=== PATIENT | male | born 1960 | race Caucasian/White ===

== ENCOUNTER 2017-05-26 09:22 | Inpatient (IN) | payer OTHER ==
--- NOTE | 2017-05-26 09:31 | PDOC ---
History of Present Illness - General Chief Complaint: Pain Stated Complaint: ABDOMINAL PAIN,HX OF DIVERTICULITIS Time Seen by Provider: 05/26/17 09:30 - History of Present Illness Initial Comments: 05/26/17 10:06 Chief complaint: Abdominal pain History of present illness: Patient states that he has had abdominal pain for the last week, off and on, and today it is unbearable. He states that the only thing that works for his pain is Dilaudid and is demanding a Dilaudid injection immediately. His pain is poorly described and he refuses to localize it. He states that he is "retching" but no vomiting. He states he is having bowel movements but denies bloody stool or melena. Review of systems: As noted above. In addition, he states that he has had multiple episodes of "diverticulitis" but no surgery. He states that the last episode was 4 or 5 years ago. At the same time, he says that "no one can find out what is causing my abdominal pain" his doctors are Dr. Juarez and Dr. Aguilera, who is GI. Refuses the remainder of the review of systems, stating he will give me more information once he gets his allotted Past medical history: The patient states he has high blood pressure, elevated cholesterol, but no diabetes. He usually takes medication for these conditions but has not taken any recently. He takes Crestor but does not know the names of his other medications. Denies any prior surgery. Mentions diverticulitis as noted above. Denies any other medical or surgical conditions Social history: Patient lives in the [place], has been treated at [facility], where his primary physician is associated. Has also been treated at [facility] and other [facility], but states he came here because he was told by friends that can be seen faster. He states that he went to [facility] recently, was not seen for 6-8 hours, and was only given a medication that began with "K" which did not help. Family history: Reviewed and noncontributory Physical exam: Complains of pain in the lower abdomen, mild to moderate distress , but cooperative. Afebrile, vital signs normal No pallor or icterus. PERRLA, ENT clear. Mucous membranes dry Neck supple without bruit mass or nodes Lungs clear to P&A with full breath sounds throughout bilaterally CV S1 and S2 distant without murmur rub or gallop pulses full and symmetric no JVD or edema no bruits Abdomen nondistended, normal bowel sounds. Soft with tenderness to deep palpation in all 4 quadrants, but most notably in the left lower quadrant., there is guarding and the suggestion of rebound.. Skin clear, no rash, adequate turgor and wet mucous membranes Extremities no CCE Neurological intact Impression: The patient appears to have abdominal pain for over one week, progressively worse, possible diverticulitis, possible abscess, other considerations include renal colic, UTI, partial obstruction, atypical appendicitis. Plan: Routine labs and CT scan. 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 Analgesics as needed. 05/26/17 12:02 Past History - Past Medical History Allergies/Adverse Reactions: Allergies Allergy/AdvReac Type Severity Reaction Status Date / Time No Known Allergies Allergy Verified 05/26/17 09:27 Home Medications: Ambulatory Orders NK [No Known Home Medication] 05/26/17 GI Disorders: Yes (DIVERTICULITIS) - Psycho/Social/Smoking Cessation Hx Anxiety: No Suicidal Ideation: No Smoking History: Never smoked Information on smoking cessation initiated: No Hx Alcohol Use: No Drug/Substance Use Hx: No Substance Use Type: Marijuana *Physical Exam - Vital Signs Last Vital Signs Temp Pulse Resp BP Pulse Ox 98.8 F 100 H 18 149/88 100 05/26/17 09:24 05/26/17 09:24 05/26/17 09:24 05/26/17 09:24 05/26/17 09:24 ED Treatment Course - LABORATORY CBC & Chemistry Diagram: 05/26/17 09:49 05/26/17 09:49 Medical Decision Making - Medical Decision Making 05/26/17 10:16 Attempt was made to contact Dr. Juarez, the patient's PCP. He is away on vacation, but his partner in the office reviewed his medical record. The only noted GI disease was Perry's esophagus. There've been no recent CAT scans and no treatment for other GI disease which are undertaken by the office. Hospital records were surged as well, which revealed a CAT scan several years ago at [facility] which showed diverticulosis but no diverticulitis GI physician Dr. Aguilera was contacted by phone. His last record was 2005. Patient was seen by his partner at the time. Colonoscopy revealed a polyp. Upper endoscopy showed mild reflux. No other significant abnormalities were noted. No more recent studies are available. White blood count of 20,000 with a left shift is present CT scan reveals acute diverticulitis with surrounding inflammation but no distinct abscess or fluid collection. Antibiotic started. Patient admitted for further treatment. Discussed with Dr. Albrgiht, admitting hospitalist Pain is controlled on Dilaudid. 05/26/17 15:19 *DC/Admit/Observation/Transfer Diagnosis at time of Disposition: Diverticulitis Qualifiers: Diverticulitis site: large intestine Diverticulitis bleeding: without bleeding Diverticulitis complication: without perforation or abscess Qualified Code(s): K57.32 - Diverticulitis of large intestine without perforation or abscess without bleeding - Discharge Dispostion Admit: Yes
[2017-05-26] MEDS ORDERED: ONDANSETRON 4 MG/2 ML VIAL IVPB ONE ×2 (09:40→11:28)
[2017-05-26] MEDS ORDERED: SODIUM CHLORIDE 1,000 ML IV STA (09:40)
[2017-05-26] MEDS ORDERED: KETOROLAC TROMETHAMINE 30 MG/1 ML VIAL IVPUSH ONE (09:41)
[2017-05-26] MEDS ORDERED: KETOROLAC TROMETHAMINE 30 MG/1 ML VIAL ONE (09:48)
[2017-05-26] MEDS ORDERED: ONDANSETRON 4 MG/2 ML VIAL ONE ×2 (09:48→11:28)
[2017-05-26 09:59] LABS: MCH 29.6 pg (25.7-33.7); MCHC 34.5 g/dl (32.0-35.9); MEAN CELL VOLUME 85.9 fl (80-96); MEAN PLT VOLUME 8.4 fl (7.5-11.1); PLATELET COUNT 270 K/MM3 (134-434); RDW 12.5 % (11.9-15.9); WHITE BLOOD COUNT 20.8 K/mm3 (4.0-10.8)
[2017-05-26 10:18] LABS: ALBUMIN 4.2 g/dl (3.5-5.0); ALK PHOS 72 U/L (32-92); ANION GAP 11 (8-16); BILIRUBIN,TOTAL 1.8 mg/dl (0.2-1.0); CALCIUM 9.5 mg/dl (8.4-10.2); CO2 24 mmol/L (22-28); CREATININE 1.2 mg/dl (0.6-1.3); GLUCOSE,RANDOM 101 mg/dl (74-106); SGOT/AST 29 U/L (10-42); SGPT/ALT 44 U/L (10-40); TOT PROT 7.6 g/dl (6.4-8.3)
[2017-05-26 10:53] LABS: PLATELET ESTIMATE ADEQUATE (NORMAL)
[2017-05-26] MEDS ORDERED: HYDROmorphone HCL CARPU-JECT 1 MG/1 ML DISP.SYRIN IVPUSH ONE ×2 (11:28→15:11)
[2017-05-26] MEDS ORDERED: HYDROmorphone HCL CARPU-JECT 1 MG/1 ML DISP.SYRIN ONE ×2 (11:28→15:15)
[2017-05-26] MEDS ORDERED: SODIUM CHLORIDE 1,000 ML IV SCH ×2 (11:30→15:45)
[2017-05-26 11:50] LABS: PH,URINE 5.5 (4.5-8); URINE APPEARANCE CLOUDY; URINE BILIRUBIN 1+ (NEGATIVE); URINE BLOOD Trace-intact (NEGATIVE); URINE COLOR YELLOW; URINE GLUCOSE (UA) Negative (NEGATIVE); URINE KETONE 2+ (NEGATIVE); URINE LEUK ESTERASE Negative (NEGATIVE); URINE NITRITE Negative (NEGATIVE); URINE PROTEIN 1+ (NEGATIVE)
[2017-05-26 11:51] LABS: URINE BACTERIA FEW /hpf (NEGATIVE); URINE MUCUS FEW; URINE RBC 0-3 /hpf (0-3); URINE WBC 0-3 (3-5)
[2017-05-26] MEDS ORDERED: PIPERACILLIN/TAZOB 3.375 GM/50 ML PRE-DOCKED IV ONE (14:52)
[2017-05-26] MEDS ORDERED: PIPERACILLIN/TAZOBACTAM 3.375 GM VIAL IVPB ONE (15:15)
[2017-05-26] MEDS: HYDROmorphone HCL CARPU-JECT 1 MG/1 ML DISP.SYRIN IVPUSH PRN ×2 (16:33→20:19)
[2017-05-26] MEDS ORDERED: diphenhydrAMINE HCL 50 MG CAPSULE PO ONE (23:03)
--- NOTE | 2017-05-26 23:07 | HP ---
CHIEF COMPLAINT: abd pain PCP: Ann; GI: Erlich HISTORY OF PRESENT ILLNESS: This is a 57 year old male with a past medical history significant for diverticulitis, last episode 5-6 years ago, who presented to the ED with abdominal pain and demanded dilaudid upon arrival as per ED note. Pt reports that he also has an undiagnosed problem for years where he starts to dry heave and only dilaudid relieves the symptoms. He states that no physicians have been able to determine the cause. He reports that he has been having abdominal pain off and on for the past week or so but the pain became unbearable yesterday with "retching". Pt reports abdominal cramping but denies diarrhea. He states that he has not been taking his medication as he has not been feeling well. ER course was notable for: (1) CT c/w sigmoid diverticulitis (2) WBC 20.8 PAST MEDICAL HISTORY: HTN HLD [place]-2007 diverticulitis Perry's esophagus PAST SURGICAL HISTORY: pt denies Social History: Smoking: quit 12 years ago, smoked since age 16, smoked heavily-4.5ppd x 6 years prior to quitting Alcohol: pt denies Drugs: marijuana Family History: mother ETOH, , liver [place] father ETOH, [place] age 57, first [place] age 30 sister lung and Breast CA, [place] brother angina Allergies No Known Allergies Allergy (Verified 05/26/17 09:27) HOME MEDICATIONS: 3 Medication Instructions Recorded crestor unknown dose 05/26/17 BP med medicine for restless leg REVIEW OF SYSTEMS CONSTITUTIONAL: Absent: fever, chills, diaphoresis, generalized weakness, malaise, loss of appetite, weight change HEENT: Absent: rhinorrhea, nasal congestion, throat pain, throat swelling, difficulty swallowing, mouth swelling, ear pain, eye pain, visual changes CARDIOVASCULAR: Absent: chest pain, syncope, palpitations, irregular heart rate, lightheadedness , peripheral edema RESPIRATORY: Absent: cough, shortness of breath, dyspnea with exertion, orthopnea, wheezing, stridor, hemoptysis GASTROINTESTINAL: Present: abdominal pain, abdominal distension, vomiting Absent: nausea, diarrhea, constipation, melena, hematochezia GENITOURINARY: Absent: dysuria, frequency, urgency, hesitancy, hematuria, flank pain, genital pain MUSCULOSKELETAL: Absent: myalgia, arthralgia, joint swelling, back pain, neck pain SKIN: Absent: rash, itching, pallor HEMATOLOGIC/IMMUNOLOGIC: Absent: easy bleeding, easy bruising, lymphadenopathy, frequent infections ENDOCRINE: Absent: unexplained weight gain, unexplained weight loss, heat intolerance, cold intolerance NEUROLOGIC: Absent: headache, focal weakness or paresthesias, dizziness, unsteady gait, seizure, mental status changes, bladder or bowel incontinence PSYCHIATRIC: Absent: anxiety, depression, suicidal or homicidal ideation, hallucinations. PHYSICAL EXAMINATION Vital Signs - 24 hr 3 05/26/17 05/26/17 05/26/17 15:37 16:37 20:17 Temperature 99.4 F 98.5 F Pulse Rate 102 H 95 H Pulse Rate [ 90 Apical] Respiratory 18 20 18 Rate Blood Pressure 151/86 125/72 O2 Sat by Pulse 97 98 97 Oximetry (%) GENERAL: Awake, alert, and fully oriented, in no acute distress. HEAD: Normal with no signs of trauma. EYES: Pupils equal, round and reactive to light, extraocular movements intact, sclera anicteric, conjunctiva clear. No lid lag. EARS, NOSE, THROAT: Ears normal, nares patent, oropharynx clear without exudates. Moist mucous membranes. NECK: Normal range of motion, supple without lymphadenopathy, JVD, or masses. LUNGS: Breath sounds equal, clear to auscultation bilaterally. No wheezes, and no crackles. No accessory muscle use. HEART: Regular rate and rhythm, normal S1 and S2 without murmur, rub or gallop. ABDOMEN: Soft, tender B/L LQ, mildly distended, normoactive bowel sounds, + gaurding, no rebound, no masses. No hepatomegaly or splenomegaly. MUSCULOSKELETAL: Normal range of motion at all joints. No bony deformities or tenderness. No CVA tenderness. UPPER EXTREMITIES: 2+ pulses, warm, well-perfused. No cyanosis. No clubbing. No peripheral edema. LOWER EXTREMITIES: 2+ pulses, warm, well-perfused. No calf tenderness. No peripheral edema. NEUROLOGICAL: Cranial nerves II-XII intact. Normal speech. Normal gait. PSYCHIATRIC: Cooperative. Good eye contact. Appropriate mood and affect. SKIN: Warm, dry, normal turgor, no rashes or lesions noted, normal capillary refill. Laboratory Results - last 24 hr 3 05/26/17 05/26/17 05/26/17 05/26/17 09:33 09:49 09:49 11:15 WBC 20.8 H RBC 5.26 Hgb 15.6 Hct 45.1 MCV 85.9 MCH 29.6 MCHC 34.5 RDW 12.5 Plt Count 270 MPV 8.4 Neutrophils % Y Neutrophils % (Manual) 80 Band Neuts % (Manual) 10 Lymphocytes % Y Lymphocytes % (Manual) 5 L Monocytes % (Manual) 5 Platelet Estimate Adequate Sodium 137 Potassium 3.4 L Chloride 102 Carbon Dioxide 24 Anion Gap 11 BUN 18 Creatinine 1.2 Creat Clearance w eGFR > 60 Random Glucose 101 Lactic Acid 1.0 Calcium 9.5 Total Bilirubin 1.8 H AST 29 ALT 44 H Alkaline Phosphatase 72 Total Protein 7.6 Albumin 4.2 Urine Color Yellow Urine Appearance Cloudy Urine pH 5.5 Ur Specific [place] 1.025 Urine Protein 1+ H Urine Glucose (UA) Negative Urine Ketones 2+ H Urine Blood Trace-intact H Urine Nitrite Negative Urine Bilirubin 1+ H Urine Urobilinogen 1.0 Ur Leukocyte Esterase Negative Urine RBC 0-3 Urine WBC 0-3 Ur Epithelial Cells Moderate Urine Bacteria Few Urine Mucus Few ASSESSMENT/PLAN: 57yM with PMH diverticulitis, HTN, HLD presented to the ED with severe pain. He is being admitted for diverticulitis. Diverticulitis - cont zosyn, ID consult for same - cont dilaudid q3-4h for severe pain - cont IVF - NPO - if not improving, consider surgical consult HTN/HLD - will need to call pharmacy in am for medication name and doses. 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 Visit type - Emergency Visit Emergency Visit: Yes ED Registration Date: 05/26/17 Care time: The patient presented to the Emergency Department on the above date and was hospitalized for further evaluation of their emergent condition. - New Patient This patient is new to me today: Yes Date on this admission: 05/26/17 - Critical Care Critical Care patient: No
[2017-05-26] MEDS ORDERED: diphenhydrAMINE HCL 25 MG CAPSULE (FP) PO ONE ×2 (23:15→23:45)
[2017-05-26] MEDS: SODIUM CHLORIDE 0.9%/KCL 1,000 ML IV SCH (23:48)
[2017-05-27] MEDS: HYDROmorphone HCL CARPU-JECT 1 MG/1 ML DISP.SYRIN IVPUSH PRN ×5 (01:56→20:04)
[2017-05-27 07:57] LABS: ALBUMIN 3.5 g/dl (3.5-5.0); ALK PHOS 63 U/L (32-92); ANION GAP 8 (8-16); BILIRUBIN,TOTAL 2.9 mg/dl (0.2-1.0); CALCIUM 8.5 mg/dl (8.4-10.2); CO2 22 mmol/L (22-28); CREATININE 0.9 mg/dl (0.6-1.3); GLUCOSE,RANDOM 95 mg/dl (74-106); MAGNESIUM 1.9 mg/dL (1.8-2.4); PHOSPHOROUS 2.1 mg/dl (2.5-4.6); SGOT/AST 29 U/L (10-42); SGPT/ALT 36 U/L (10-40); TOT PROT 6.5 g/dl (6.4-8.3)
[2017-05-27] MEDS ORDERED: ACETAMINOPHEN 1000 MG/100 ML VIAL (NON FORMULARY) IVPB ONE (08:24)
--- NOTE | 2017-05-27 08:24 | PN ---
Physical Exam: SUBJECTIVE: Patient seen and examined, reports severe to left lower quadrant with nausea, tmax 101.5 rectal OBJECTIVE: patient is a 57 y/o male with a past medical history of HTN, HLD, [place] -2007, diverticulitis, and Perry's esophagus. Patient was admitted from the emergency department for sepsis and diverticulitis. Vital Signs Period Temp Pulse Resp BP Sys/Salter Pulse Ox Last 24 Hr 98.5 F-99.6 F 90-102 18-20 125-151/72-86 97-98 GENERAL: The patient is awake, alert, and fully oriented, in no acute distress. HEAD: Normal with no signs of trauma. EYES: PERRL, extraocular movements intact, sclera anicteric, conjunctiva clear. No ptosis. ENT: Ears normal, nares patent, oropharynx clear without exudates, moist mucous membranes. NECK: Trachea midline, full range of motion, supple. LUNGS: Breath sounds equal, clear to auscultation bilaterally, no wheezes, no crackles, no accessory muscle use. HEART: Regular rate and rhythm, S1, S2 without murmur, rub or gallop. ABDOMEN: Soft, moderte tenderness to the left lower quadrant, nondistended, normoactive bowel sounds, no guarding, no rebound, no hepatosplenomegaly, no masses. EXTREMITIES: 2+ pulses, warm, well-perfused, no edema. NEUROLOGICAL: Cranial nerves II through XII grossly intact. Normal speech, gait not observed. PSYCH: Normal mood, normal affect. SKIN: Warm, dry, normal turgor, no rashes or lesions noted Laboratory Results - last 24 hr 05/27/17 07:00 Sodium 132 L Potassium 3.6 Chloride 102 Carbon Dioxide 22 Anion Gap 8 BUN 9 D Creatinine 0.9 D Creat Clearance w eGFR > 60 Random Glucose 95 Calcium 8.5 Phosphorus 2.1 L Magnesium 1.9 Total Bilirubin 2.9 H D AST 29 ALT 36 Alkaline Phosphatase 63 Total Protein 6.5 Albumin 3.5 CBC WBC 11.7 K/mm3 (4.0-10.8) H D 05/27/17 07:00 RBC 4.48 M/mm3 (4.00-5.60) 05/27/17 07:00 Hgb 13.2 GM/dl (11.7-16.9) D 05/27/17 07:00 Hct 38.9 % (35.4-49) 05/27/17 07:00 MCV 86.9 fl (80-96) 05/27/17 07:00 MCH 29.4 pg (25.7-33.7) 05/27/17 07:00 MCHC 33.8 g/dl (32.0-35.9) 05/27/17 07:00 RDW 12.3 % (11.9-15.9) 05/27/17 07:00 Plt Count 190 K/MM3 (134-434) D 05/27/17 07:00 MPV 9.0 fl (7.5-11.1) 05/27/17 07:00 Neutrophils % 87.4 % (42.8-82.8) H 05/27/17 07:00 Neutrophils % (Manual) 80 % (42.8-82.8) 05/26/17 09:49 Band Neuts % (Manual) 10 % (0-10) 05/26/17 09:49 Lymphocytes % 4.9 % (8-40) L 05/27/17 07:00 Lymphocytes % (Manual) 5 % (8-40) L 05/26/17 09:49 Monocytes % 7.2 % (3.8-10.2) 05/27/17 07:00 Monocytes % (Manual) 5 % (3.8-10.2) 05/26/17 09:49 Eosinophils % 0.4 % (0-4.5) 05/27/17 07:00 Basophils % 0.1 % (0-2.0) 05/27/17 07:00 Platelet Estimate Adequate (NORMAL) 05/26/17 09:49 Active Medications Generic Name Dose Route Start Last Admin Trade Name Freq PRN Reason Stop Dose Admin Enoxaparin Sodium 40 mg 05/27/17 10:00 Lovenox - SQ DAILY EMILIANO Hydromorphone HCl 1 mg 05/26/17 16:17 05/27/17 06:57 Dilaudid Injection - IVPUSH 1 mg Q4H PRN Administration PAIN Potassium Chloride/Sodium Chloride 1,000 mls @ 125 mls/hr 05/26/17 23:45 23:48 Ns+20 Meq Kcl - IV 125 mls/hr ASDIR EMILIANO Administration Ondansetron HCl 4 mg 05/26/17 16:17 Zofran Injection IVPB Q6H PRN NAUSEA IMAGING ct of abd/pelvis w/iv & po contrast acute diverticulits proximal and mid sigmoid colon, minimal free fluid right side of pelvis ASSESSMENT/PLAN: 1)Diverticulitis - zosyn given in ED at 1500, will order levaquin and flagyl - leukocytosis improving, pt is febrile - continue dilaudid for pain - ct scan of abd/pelvis reviewed if pain is worsening will consider surgical consult - npo will advance if tolerated 2) sepsis - secondary to diverticulitis, continue levaquin and flagyl - one set of blood cultures preliminary +, repeat BC ordered - leukocytosis improving pt does remain febrile, followup blood cultures - appreciate ID input (Mitch) 3) HTN/HLD - pharmacy called, stevo chemist enzymes to verify home medications - restart amlodypine, b/p at goal hyperlipidemia - restart zetia and crestor, lft's wnl DVT PPX - lovenox 40mg SC daily FEN - NS w/20mEq KCl@125cc/hr - BMP in am - NPO except ice chips Dispo: Pt currently requires inpatient monitoring for management of his emergent condition and expected LOS is greater than 2 midnights. Visit type - Emergency Visit Emergency Visit: Yes ED Registration Date: 05/26/17 Care time: The patient presented to the Emergency Department on the above date and was hospitalized for further evaluation of their emergent condition. - New Patient This patient is new to me today: Yes Date on this admission: 05/27/17 - Critical Care Critical Care patient: No
[2017-05-27] MEDS ORDERED: HYDROmorphone HCL CARPU-JECT 1 MG/1 ML DISP.SYRIN IVPUSH ONE (08:32)
[2017-05-27 08:39] LABS: BASOPHIL 0.1 % (0-2.0); EOSINOPHIL 0.4 % (0-4.5); MCH 29.4 pg (25.7-33.7); MCHC 33.8 g/dl (32.0-35.9); MEAN CELL VOLUME 86.9 fl (80-96); NEUTROPHILS 87.4 % (42.8-82.8); PLATELET COUNT 190 K/MM3 (134-434); RDW 12.3 % (11.9-15.9); WHITE BLOOD COUNT 11.7 K/mm3 (4.0-10.8)
[2017-05-27] MEDS: ONDANSETRON 4 MG/2 ML VIAL IVPB PRN ×2 (08:49→13:59)
--- NOTE | 2017-05-27 08:49 | EKG ---
Test Reason : Blood Pressure : / mmHG Vent. Rate : 108 BPM Atrial Rate : 108 BPM P-R Int : 148 ms QRS Dur : 092 ms QT Int : 362 ms P-R-T Axes : 040 063 020 degrees QTc Int : 485 ms SINUS TACHYCARDIA NO PREVIOUS ECGS AVAILABLE Confirmed by WERO TORREZ MD ([id number]) on 05/27/2017 8:49:40 AM Referred By: MD ZARAGOZA Confirmed By:WERO TORREZ MD
[2017-05-27] MEDS: METRONIDAZOLE 500 MG PREMIXED 100 ML IVPB SCH ×2 (10:00→17:50)
[2017-05-27] MEDS: ENOXAPARIN NA (PORCINE) 40 MG/0.4 ML DISP.SYRIN SQ SCH (10:05)
[2017-05-27] MEDS ORDERED: ACETAMINOPHEN 325 MG TABLET (FP) PO PRN (10:41)
[2017-05-27] MEDS ORDERED: SODIUM PHOSPHATE - 15 MM in SODIUM CHLORIDE 250 ML IVPB ONE (11:00)
[2017-05-27] MEDS: FAMOTIDINE 20 MG/50 ML IVPB 50 ML IVPB SCH ×2 (13:54→21:56)
[2017-05-27] MEDS: SODIUM CHLORIDE 0.9%/KCL 1,000 ML IV SCH (17:03)
--- NOTE | 2017-05-27 17:12 | PN ---
Progress Note (short form) - Note Progress Note: ID Consult dictated Acute sigmoid diverticulitis Gram Negative bacteremia secondary to GI focus Pending identification of blood isolate, empiric zosyn/ flagyl
[2017-05-27] MEDS ORDERED: PROMETHAZINE HCL 25 MG/1 ML VIAL IVPUSH PRN (18:55)
[2017-05-27] MEDS ORDERED: PROMETHAZINE HCL 25 MG/1 ML VIAL IM PRN (20:00)
[2017-05-27] MEDS: PIPERACILLIN/TAZOB 4.5 GM 4.5 GM in DEXTROSE 5%-WATER - 100 ML IVPB SCH ×2 (20:58→21:55)
[2017-05-27] MEDS ORDERED: diphenhydrAMINE HCL 50 MG CAPSULE PO ONE (21:27)
[2017-05-27] MEDS: ROSUVASTATIN CA 10 MG TABLET (FP) PO SCH ×2 (21:56→22:01)
--- NOTE | 2017-05-27 23:33 | CONS ---
DATE OF CONSULTATION: DATE OF DICTATION: 05/27/2017 INFECTIOUS DISEASE CONSULTATION HISTORY OF PRESENT ILLNESS: A 57-year-old male with a history of diverticulitis evaluated for positive blood culture. He presented to the hospital on May 26, 2017, with a 1-week history of worsening abdominal pain. Patient had intermittent lower abdominal pain for about a week prior to admission; however, he became progressively more severe to the point where he was unable to tolerate it any longer. He also experienced some retching but no vomiting. He reports having normal bowel movements during this time. He denies any vomiting or fritz red blood, hematemesis, melena, or hematochezia. He was evaluated in the emergency room where CAT scan showed inflammation of the proximal mid sigmoid colon consistent with diverticulitis. There were small drops of extraluminal air but no fritz perforation or evidence of abscess. He was empirically treated with Levaquin and Flagyl. His course was complicated by fever, elevated white blood cell count and positive gram cultures for gram variable rods. He complains of lower abdominal pain in the lower quadrants bilaterally, exacerbated by movement and nausea. PAST MEDICAL HISTORY: Positive for Perry esophagus, 1 prior episode of diverticulitis, hypertension, hyperlipidemia, coronary artery disease, myocardial infarction. ALLERGIES: No known allergies. MEDICATION: Include Zofran, Tylenol, Levaquin, Flagyl, Lovenox, Zetia, Norvasc, Dilaudid. SOCIAL HISTORY: Former smoker, no history of alcohol abuse. SYSTEMIC REVIEW: Neurologic: No loss of consciousness, seizure activity, or focal weakness. Cardiac: Negative chest pain or palpitations. Respiratory: Negative cough or sputum production. Gastrointestinal: As per HPI. Genitourinary: Negative for urinary tract infection. LABORATORY DATA: White count on admission 20.8, presently 11.7, hematocrit 38.9, platelet count 190, creatinine 0.9, total bilirubin 2.9, alkaline phosphatase 63, AST 29. Urinalysis 0 to 3 white cells. PHYSICAL EXAMINATION: General: He is awake and alert, he is in moderate distress secondary to abdominal pain. Vital signs: Temperature 98.0, T-max 101.5, blood pressure 155/76, pulse 102 regular, respirations 19 per minute. HEENT: Sclerae anicteric. Cardiovascular: Heart sounds S1, S2. Respiratory: Lungs clear. Abdomen: Soft. There is tenderness present left greater than right lower quadrant. No rebound, or rigidity. Extremities: Negative for edema. IMPRESSION: 1. Acute sigmoid diverticulitis. 2. Gram negative bacteremia secondary to gastrointestinal focus. 3. Fever and leukocytosis. Await identification of blood isolate. Substitute Zosyn 4.5 g IV piggyback every 6 hours. Continue Flagyl. Analgesics. Further recommendations pending culture results. Will follow. Thank you for the kind referral. LUZ CHRISTIANSON M.D. RADHA/[id number]
[2017-05-28] MEDS: HYDROmorphone HCL CARPU-JECT 1 MG/1 ML DISP.SYRIN IVPUSH PRN ×3 (00:22→09:39)
[2017-05-28] MEDS: SODIUM CHLORIDE 0.9%/KCL 1,000 ML IV SCH ×2 (00:26→11:36)
[2017-05-28] MEDS: METRONIDAZOLE 500 MG PREMIXED 100 ML IVPB SCH ×3 (01:31→17:22)
[2017-05-28] MEDS: PIPERACILLIN/TAZOB 4.5 GM 4.5 GM in DEXTROSE 5%-WATER - 100 ML IVPB SCH ×3 (02:17→14:40)
[2017-05-28] MEDS: ONDANSETRON 4 MG/2 ML VIAL IVPB PRN ×2 (05:36→11:39)
[2017-05-28 08:03] LABS: BASOPHIL 0.1 % (0-2.0); EOSINOPHIL 0.7 % (0-4.5); MCH 29.7 pg (25.7-33.7); MCHC 33.7 g/dl (32.0-35.9); MEAN CELL VOLUME 88.3 fl (80-96); MEAN PLT VOLUME 9.1 fl (7.5-11.1); NEUTROPHILS 89.3 % (42.8-82.8); PLATELET COUNT 140 K/MM3 (134-434); RDW 12.8 % (11.9-15.9); WHITE BLOOD COUNT 11.3 K/mm3 (4.0-10.8)
[2017-05-28 08:15] LABS: ALBUMIN 3.2 g/dl (3.5-5.0); ALK PHOS 57 U/L (32-92); ANION GAP 9 (8-16); BILIRUBIN,TOTAL 6.2 mg/dl (0.2-1.0); CALCIUM 8.6 mg/dl (8.4-10.2); CO2 22 mmol/L (22-28); CREATININE 0.8 mg/dl (0.6-1.3); GLUCOSE,RANDOM 89 mg/dl (74-106); PHOSPHOROUS 1.8 mg/dl (2.5-4.6); SGOT/AST 29 U/L (10-42); SGPT/ALT 35 U/L (10-40); TOT PROT 6.3 g/dl (6.4-8.3)
--- NOTE | 2017-05-28 09:09 | PN ---
Progress Note, Physician History of Present Illness: Reports improvement in abdominal pain Still with sharp pains, lower quadrants bilaterally Less nausea No vomiting + small BM No c/o fever/ chills Temps, WBC improved - Current Medication List Current Medications: Active Medications Acetaminophen (Tylenol -) 650 mg PO Q4H PRN PRN Reason: FEVER OR PAIN Amlodipine Besylate (Norvasc -) 5 mg PO DAILY [facility] Ezetimibe (Zetia -) 10 mg PO DAILY [facility] Enoxaparin Sodium (Lovenox -) 40 mg SQ DAILY [facility] Last Admin: 05/27/17 10:05 Dose: 40 mg Hydromorphone HCl (Dilaudid Injection -) 2 mg IVPUSH Q4H PRN PRN Reason: PAIN Last Admin: 05/28/17 05:19 Dose: 2 mg Potassium Chloride/Sodium Chloride (Ns+20 Meq Kcl -) 1,000 mls @ 125 mls/hr IV ASDIR [facility] Last Admin: 05/28/17 00:26 Dose: 125 mls/hr Metronidazole (Flagyl 500mg Premixed Ivpb -) 100 mls @ 100 mls/hr IVPB Q8H-IV EMILIANO Last Admin: 05/28/17 01:31 Dose: 100 mls/hr Famotidine/Sodium Chloride (Pepcid 20 Mg Premixed Ivpb -) 50 mls @ 100 mls/hr IVPB BID EMILIANO Last Admin: 05/27/17 21:56 Dose: 100 mls/hr Piperacillin Sod/Tazobactam (Sod 4.5 gm/ Dextrose) 100 mls @ 200 mls/hr IVPB Q6H-IV EMILIANO PRN Reason: Protocol Last Admin: 05/28/17 02:17 Dose: 200 mls/hr Ondansetron HCl (Zofran Injection) 4 mg IVPB Q6H PRN PRN Reason: NAUSEA Last Admin: 05/28/17 05:36 Dose: 4 mg Promethazine HCl (Phenergan Injection -) 12.5 mg IM Q6H PRN PRN Reason: NAUSEA AND/OR VOMITING Rosuvastatin Calcium (Crestor -) 10 mg PO HS [facility] Last Admin: 05/27/17 22:01 Dose: Not Given - Objective Vital Signs: Vital Signs Temperature 98.5 F 05/28/17 06:00 Pulse Rate 100 H 05/28/17 06:00 Respiratory Rate 19 05/28/17 06:00 Blood Pressure 132/87 05/28/17 06:00 O2 Sat by Pulse Oximetry (%) 98 05/28/17 06:00 Constitutional: Yes: No Distress Eyes: Yes: Conjunctiva Clear Cardiovascular: Yes: Regular Rate and Rhythm, S1, S2 Respiratory: Yes: CTA Bilaterally Gastrointestinal: Yes: Normal Bowel Sounds, Soft, Tenderness, Other (+ bilateral lower quadrant tenderness L >R) Edema: No Labs: CBC, BMP 05/28/17 07:00 05/28/17 07:00 Assessment/Plan Acute sigmoid diverticulitis Gram Negative bacteremia/ sepsis secondary to GI source Fever/ leukocytosis- improved Called lab- blood isolate not growing aerobically Continue empiric zosyn/ flagyl Await blood c/s
[2017-05-28] MEDS: EZETIMIBE 10 MG TABLET (FP) PO SCH (09:14)
[2017-05-28] MEDS: FAMOTIDINE 20 MG/50 ML IVPB 50 ML IVPB SCH ×2 (09:14→21:55)
[2017-05-28] MEDS: amLODIPine BESYLATE 5 MG TABLET (FP) PO SCH (09:14)
--- NOTE | 2017-05-28 09:40 | PN ---
Physical Exam: SUBJECTIVE: Patient seen and examined, reports feeling better, reports intermittent abdominal pain with nausea, denies any chest pain or shortness of breath. Patient reports feeling anxious, he smokes pot daily due to his anxiety. OBJECTIVE: patient is a 57 y/o male with a past medical history of HTN, HLD, [place]- 2007, diverticulitis, and Perry's esophagus. Patient was admitted from the emergency department for sepsis and diverticulitis. Vital Signs Period Temp Pulse Resp BP Sys/Salter Pulse Ox Last 24 Hr 98.0 F-98.7 F 88-106 18-19 132-155/79-87 95-98 GENERAL: The patient is awake, alert, and fully oriented, in no acute distress. HEAD: Normal with no signs of trauma. EYES: PERRL, extraocular movements intact, sclera anicteric, conjunctiva clear. No ptosis. ENT: Ears normal, nares patent, oropharynx clear without exudates, moist mucous membranes. NECK: Trachea midline, full range of motion, supple. LUNGS: Breath sounds equal, clear to auscultation bilaterally, no wheezes, no crackles, no accessory muscle use. HEART: Regular rate and rhythm, S1, S2 without murmur, rub or gallop. ABDOMEN: Soft, moderate tenderness to the left lower quadrant, nondistended, normoactive bowel sounds, no guarding, no rebound, no hepatosplenomegaly, no masses. EXTREMITIES: 2+ pulses, warm, well-perfused, no edema. NEUROLOGICAL: Cranial nerves II through XII grossly intact. Normal speech, gait not observed. PSYCH: anxious. SKIN: Warm, dry, normal turgor, no rashes or lesions noted Laboratory Results - last 24 hr 05/27/17 05/28/17 05/28/17 09:55 07:00 07:00 WBC 11.3 H RBC 4.26 Hgb 12.7 Hct 37.6 MCV 88.3 MCH 29.7 MCHC 33.7 RDW 12.8 Plt Count 140 D MPV 9.1 Neutrophils % 89.3 H Lymphocytes % 4.6 L Monocytes % 5.3 Eosinophils % 0.7 Basophils % 0.1 Sodium 135 L Potassium 3.7 Chloride 104 Carbon Dioxide 22 Anion Gap 9 BUN 12 D Creatinine 0.8 Creat Clearance w eGFR > 60 Random Glucose 89 Lactic Acid 1.2 Calcium 8.6 Phosphorus 1.8 L Magnesium 2.0 Total Bilirubin 6.2 H D AST 29 ALT 35 Alkaline Phosphatase 57 Total Protein 6.3 L Albumin 3.2 L Active Medications Generic Name Dose Route Start Last Admin Trade Name Freq PRN Reason Stop Dose Admin Acetaminophen 650 mg 05/27/17 10:41 Tylenol - PO Q4H PRN FEVER OR PAIN Amlodipine Besylate 5 mg 05/28/17 10:00 05/28/17 09:14 Norvasc - PO 5 mg DAILY EMILIANO Administration Ezetimibe 10 mg 05/28/17 10:00 05/28/17 09:14 Zetia - PO 10 mg DAILY EMILIANO Administration Enoxaparin Sodium 40 mg 05/27/17 10:00 05/28/17 09:44 Lovenox - SQ 40 mg DAILY EMILIANO Administration Hydromorphone HCl 2 mg 05/27/17 18:55 05/28/17 09:39 Dilaudid Injection - IVPUSH 2 mg Q4H PRN Administration PAIN Metronidazole 100 mls @ 100 mls/hr 05/27/17 10:00 05/28/17 10:03 Flagyl 500mg Premixed Ivpb - IVPB 100 mls/hr Q8H-IV EMILIANO Administration Famotidine/Sodium Chloride 50 mls @ 100 mls/hr 05/27/17 13:15 05/28/17 09:14 Pepcid 20 Mg Premixed Ivpb - IVPB 100 mls/hr BID EMILIANO Administration Piperacillin Sod/Tazobactam 100 mls @ 200 mls/hr 05/27/17 17:15 05/28/17 09:44 Sod 4.5 gm/ Dextrose IVPB 200 mls/hr Q6H-IV EMILIANO Administration Protocol Potassium Chloride/Sodium Chloride 1,000 mls @ 75 mls/hr 05/28/17 10:52 Ns+20 Meq Kcl - IV ASDIR EMILIANO Potassium Phosphate 21 mm/ 257 mls @ 62.5 mls/hr 05/28/17 10:53 Sodium Chloride IVPB 05/28/17 14:59 ONCE ONE Lactobacillus Acidophilus 1 tab 05/28/17 10:00 05/28/17 10:02 Bacid - PO 1 tab DAILY EMILIANO Administration Ondansetron HCl 4 mg 05/26/17 16:17 05/28/17 05:36 Zofran Injection IVPB 4 mg Q6H PRN Administration NAUSEA Oxycodone/Acetaminophen 1 combo 05/28/17 10:32 Percocet 5/325 - PO Q4H PRN PAIN LEVEL 6-10 Promethazine HCl 12.5 mg 05/27/17 20:00 Phenergan Injection - IM Q6H PRN NAUSEA AND/OR VOMITING Rosuvastatin Calcium 10 mg 05/27/17 22:00 05/27/17 22:01 Crestor - PO Not Given HS [facility] Microbiology 05/26/17 11:15 Blood - Peripheral Venous Blood Culture - Final Clostridium Paraputrificum 05/26/17 11:02 Blood - Peripheral Venous Blood Culture - Preliminary Pending Organism 05/27/17 09:50 Blood - Peripheral Venous Blood Culture - Preliminary NO GROWTH OBTAINED AFTER 24 HOURS, INCUBATION TO CONTINUE FOR 4 DAYS. 05/27/17 09:55 Blood - Peripheral Venous Blood Culture - Preliminary NO GROWTH OBTAINED AFTER 24 HOURS, INCUBATION TO CONTINUE FOR [address] of abd/pelvis w/iv & po contrast acute diverticulits proximal and mid sigmoid colon, minimal free fluid right side of pelvis ASSESSMENT/PLAN: 1)Diverticulitis - pt reports improvement of abdominal pain, start clear liquid diet than advance as tolerated - continue zosyn and flagyl as per ID - leukocytosis improving, pt is afebrile - start percocet with dilaudid for breathrough pain 2) sepsis - secondary to clostridum paraputificum (anerobic) continue flagy, repeat blood cultures negative to date - pending echo - strict monitoring o fcbc and fever curve - ID, Dr Meyer consulted and followed 3) HTN/HLD - continue amlodipine, b/p at goal hyperlipidemia - continue zetia and crestor, lft's wnl 4) psych anxiety - reports a history of anxiety and self medicates with marijuana, pt denies any alcohol use - start ativan 0.5mg iv tid DVT PPX - lovenox 40mg SC daily FEN - NS w/20mEq KCl@ 75ml/hr - BMP in am - replete magan levine Dispo: Pt currently requires inpatient monitoring for management of his emergent condition and expected LOS is greater than 2 midnights. Visit type - Emergency Visit Emergency Visit: Yes ED Registration Date: 05/26/17 Care time: The patient presented to the Emergency Department on the above date and was hospitalized for further evaluation of their emergent condition. - New Patient This patient is new to me today: No - Critical Care Critical Care patient: No - Discharge Referral Referred to [facility] Med P.C.: No
[2017-05-28] MEDS: ENOXAPARIN NA (PORCINE) 40 MG/0.4 ML DISP.SYRIN SQ SCH (09:44)
[2017-05-28] MEDS ORDERED: LEVOFLOXACIN 750 MG IVPB 150 ML IVPB SCH (10:00)
[2017-05-28] MEDS: LACTOBACILLUS ACIDOPHILUS 1 EACH TAB (FP) PO SCH (10:02)
[2017-05-28] MEDS ORDERED: POTASSIUM PHOSPHATE 21 MM in SODIUM CHLORIDE 250 ML IVPB ONE (11:30)
[2017-05-28] MEDS ORDERED: LORazepam 2 MG/ML SDV VIAL IVPUSH PRN (14:09)
[2017-05-28] MEDS ORDERED: PT OWN MED DRAWER 7, Y5N ONE (14:32)
[2017-05-28] MEDS: NAPH,MB-DB/K PH,MBDB POWDER PACKET PO SCH ×2 (14:40→21:55)
[2017-05-28] MEDS: HYDROmorphone HCL CARPU-JECT 1 MG/1 ML DISP.SYRIN IVPB PRN ×2 (16:05→20:21)
[2017-05-28] MEDS: PIPERACILLIN/TAZOB 4.5 GM 100 ML IVPB SCH (20:22)
[2017-05-28] MEDS ORDERED: diphenhydrAMINE HCL 50 MG CAPSULE PO ONE (21:00)
[2017-05-28] MEDS: ROSUVASTATIN CA 10 MG TABLET (FP) PO SCH (21:49)
[2017-05-29] MEDS: HYDROmorphone HCL CARPU-JECT 1 MG/1 ML DISP.SYRIN IVPB PRN ×4 (02:12→19:30)
[2017-05-29] MEDS: METRONIDAZOLE 500 MG PREMIXED 100 ML IVPB SCH ×5 (02:13→23:50)
[2017-05-29] MEDS: PIPERACILLIN/TAZOB 4.5 GM 100 ML IVPB SCH ×2 (02:57→10:18)
[2017-05-29] MEDS: NAPH,MB-DB/K PH,MBDB POWDER PACKET PO SCH ×3 (06:53→22:17)
[2017-05-29 07:47] LABS: MEAN PLT VOLUME 8.2 fl (7.5-11.1)
[2017-05-29 07:50] LABS: BASOPHIL 0.6 % (0-2.0); EOSINOPHIL 0.9 % (0-4.5); MCH 29.8 pg (25.7-33.7); MEAN CELL VOLUME 87.7 fl (80-96); NEUTROPHILS 81.5 % (42.8-82.8); PLATELET COUNT 143 K/MM3 (134-434); RDW 12.9 % (11.9-15.9); WHITE BLOOD COUNT 12.3 K/mm3 (4.0-10.8)
--- NOTE | 2017-05-29 07:59 | PN ---
Physical Exam: SUBJECTIVE: Patient seen and examined. Complains of "cramping" LLQ pain which he states is only relieved by Ativan! OBJECTIVE: Echo done but not yet reported. Afebrile. WBC 12.3. Vital Signs Period Temp Pulse Resp BP Sys/Salter Pulse Ox Last 24 Hr 98.4 F-98.5 F 88-108 17-18 117-143/69-88 96-100 GENERAL: The patient is awake, alert, and fully oriented, in no acute distress. HEAD: Normal with no signs of trauma. EYES: PERRL, extraocular movements intact, sclera anicteric, conjunctiva clear. No ptosis. ENT: Ears normal, nares patent, oropharynx clear without exudates, moist mucous membranes. NECK: Trachea midline, full range of motion, supple. LUNGS: Breath sounds equal, clear to auscultation bilaterally, no wheezes, no crackles, no accessory muscle use. HEART: Regular rate and rhythm, S1, S2 without murmur, rub or gallop. ABDOMEN: Soft, mild LLQ tenderness, nondistended, normoactive bowel sounds, no guarding, no rebound, no hepatosplenomegaly, no masses. EXTREMITIES: 2+ pulses, warm, well-perfused, no edema. NEUROLOGICAL: Cranial nerves II through XII grossly intact. Normal speech, gait not observed. PSYCH: Anxious affect, demanding. SKIN: Warm, dry, normal turgor, no rashes or lesions noted. Laboratory Results - last 24 hr 05/28/17 05/28/17 05/29/17 07:00 07:00 07:42 WBC 11.3 H 12.3 H RBC 4.26 4.29 Hgb 12.7 12.8 Hct 37.6 37.6 MCV 88.3 87.7 MCH 29.7 29.8 MCHC 33.7 34.0 RDW 12.8 12.9 Plt Count 140 D 143 MPV 9.1 8.2 Neutrophils % 89.3 H 81.5 Lymphocytes % 4.6 L 8.4 D Monocytes % 5.3 8.6 Eosinophils % 0.7 0.9 Basophils % 0.1 0.6 D Sodium 135 L Potassium 3.7 Chloride 104 Carbon Dioxide 22 Anion Gap 9 BUN 12 D Creatinine 0.8 Creat Clearance w eGFR > 60 Random Glucose 89 Calcium 8.6 Phosphorus 1.8 L Magnesium 2.0 Total Bilirubin 6.2 H D AST 29 ALT 35 Alkaline Phosphatase 57 Total Protein 6.3 L Albumin 3.2 L Active Medications Generic Name Dose Route Start Last Admin Trade Name Freq PRN Reason Stop Dose Admin Acetaminophen 650 mg 05/27/17 10:41 Tylenol - PO Q4H PRN FEVER OR PAIN Amlodipine Besylate 5 mg 05/28/17 10:00 05/28/17 09:14 Norvasc - PO 5 mg DAILY EMILIANO Administration Ezetimibe 10 mg 05/28/17 10:00 05/28/17 09:14 Zetia - PO 10 mg DAILY EMILIANO Administration Enoxaparin Sodium 40 mg 05/27/17 10:00 05/28/17 09:44 Lovenox - SQ 40 mg DAILY EMILIANO Administration Hydromorphone HCl 2 mg 05/28/17 11:24 05/29/17 02:12 Dilaudid Injection - IVPB 2 mg Q4H PRN Administration PAIN Metronidazole 100 mls @ 100 mls/hr 05/27/17 10:00 05/29/17 02:13 Flagyl 500mg Premixed Ivpb - IVPB 100 mls/hr Q8H-IV EMILIANO Administration Famotidine/Sodium Chloride 50 mls @ 100 mls/hr 05/27/17 13:15 05/28/17 21:55 Pepcid 20 Mg Premixed Ivpb - IVPB 100 mls/hr BID EMILIANO Administration Potassium Chloride/Sodium Chloride 1,000 mls @ 75 mls/hr 05/28/17 10:52 11:36 Ns+20 Meq Kcl - IV 75 mls/hr ASDIR EMILIANO Administration Piperacillin Sod/Tazobactam Sod 100 mls @ 200 mls/hr 05/28/17 21:00 05/29/17 02 :57 Zosyn 4.5gm Ivpb (Pre-Docked) IVPB 200 mls/hr Q6H-IV EMILIANO Administration Protocol Lactobacillus Acidophilus 1 tab 05/28/17 10:00 05/28/17 10:02 Bacid - PO 1 tab DAILY EMILIANO Administration Lorazepam 0.5 mg 05/28/17 14:09 05/29/17 02:41 Ativan Injection - IVPUSH 0.5 mg TID PRN Administration ANXIETY Ondansetron HCl 4 mg 05/26/17 16:17 05/28/17 11:39 Zofran Injection IVPB 4 mg Q6H PRN Administration NAUSEA Oxycodone/Acetaminophen 1 combo 05/28/17 10:32 05/29/17 07:23 Percocet 5/325 - PO 1 combo Q4H PRN Administration PAIN LEVEL 6-10 Potassium Phos/Sodium Phos 1 packet 05/28/17 14:00 05/29/17 06:53 Phos-Nak Packet - PO 1 packet TID EMILIANO Administration Promethazine HCl 12.5 mg 05/27/17 20:00 Phenergan Injection - IM Q6H PRN NAUSEA AND/OR VOMITING Rosuvastatin Calcium 10 mg 05/27/17 22:00 05/28/17 21:49 Crestor - PO Not Given HS EMILIANO IMAGING: CTAP 05/26: Acute diverticulitis proximal and mid sigmoid colon, minimal free fluid right side of pelvis ASSESSMENT/PLAN: 1. Diverticulitis -Pain improved, tolerating liquid diet -Continue Zosyn (05/26- ), Flagyl (05/27- ) -Continue Percocet with hydromorphone for breakthrough pain -Surgical evaluation (multiple episodes of diverticulitis, now with bacteremia, r/o perforation) 2. Sepsis -Clostridum paraputrificum in one set of cultures 05/26 (sensitivities pending), organism pending second set -Organism pending in both sets from 05/27 -Echo report pending -Antibiotics as above -Follow fever, WBC curves -ID following 3. HTN -BP at goal -Continue Amlodipine 4. HLD -Continue Zetia and Crestor 5. Anxiety -Transition from IV to PO Ativan 6. Ppx -Lovenox 40mg sq daily 7. F/E/N -NS w/20mEq KCl@ 75ml/hr -K-Dur 40 mEq x 1 now for K 3.1 -Advance to full liquid diet Dispo: Requires inpatient management. Visit type - Emergency Visit Emergency Visit: Yes ED Registration Date: 05/26/17 Care time: The patient presented to the Emergency Department on the above date and was hospitalized for further evaluation of their emergent condition. - New Patient This patient is new to me today: Yes Date on this admission: 05/26/17 - Critical Care Critical Care patient: No - Discharge Referral Referred to [facility] Med P.C.: No
[2017-05-29 08:13] LABS: ALK PHOS 59 U/L (32-92); ANION GAP 5 (8-16); BILIRUBIN,TOTAL 3.6 mg/dl (0.2-1.0); CALCIUM 8.1 mg/dl (8.4-10.2); CO2 26 mmol/L (22-28); CREATININE 0.9 mg/dl (0.6-1.3); GLUCOSE,RANDOM 104 mg/dl (74-106); SGOT/AST 28 U/L (10-42); SGPT/ALT 29 U/L (10-40); TOT PROT 6.1 g/dl (6.4-8.3)
[2017-05-29] MEDS ORDERED: POTASSIUM CHLORIDE TABS 20 MEQ TABLET.ER (FP) PO ONE (08:29)
[2017-05-29] MEDS: FAMOTIDINE 20 MG/50 ML IVPB 50 ML IVPB SCH ×2 (10:19→22:17)
[2017-05-29] MEDS ORDERED: MAGNESIUM HYDROX 2400MG/30ML ORAL SUSPENSION 30 ML CUP PO PRN (10:32)
[2017-05-29] MEDS ORDERED: LORazepam 0.5 MG TABLET ONE ×2 (10:33→22:13)
[2017-05-29] MEDS: LORazepam 1 MG TABLET PO PRN ×2 (10:38→22:17)
[2017-05-29] MEDS: ENOXAPARIN NA (PORCINE) 40 MG/0.4 ML DISP.SYRIN SQ SCH (10:38)
[2017-05-29] MEDS: EZETIMIBE 10 MG TABLET (FP) PO SCH (10:38)
[2017-05-29] MEDS: amLODIPine BESYLATE 5 MG TABLET (FP) PO SCH (10:38)
[2017-05-29] MEDS: LACTOBACILLUS ACIDOPHILUS 1 EACH TAB (FP) PO SCH (10:39)
[2017-05-29] MEDS: SODIUM CHLORIDE 0.9%/KCL 1,000 ML IV SCH (10:44)
--- NOTE | 2017-05-29 11:51 | PN ---
Progress Note (short form) - Note Progress Note: ID Zosyn and metronidazole Selected Entries 05/29/17 10:35 Temperature 98.4 F Pulse Rate 99 H Respiratory 18 Rate Blood Pressure 166/89 Microbiology 05/26/17 11:15 Blood - Peripheral Venous Blood Culture - Final Clostridium Paraputrificum 05/27/17 09:55 Blood - Peripheral Venous Blood Culture - Preliminary Pending Organism 05/27/17 09:50 Blood - Peripheral Venous Blood Culture - Preliminary Pending Organism 05/26/17 11:02 Blood - Peripheral Venous Blood Culture - Preliminary Pending Organism Laboratory Tests 05/29/17 05/29/17 07:42 07:42 WBC 12.3 H Hgb 12.8 Plt Count 143 BUN 8 D Creatinine 0.9 Assessment Acute diverticulitis Clostridium bacteremia Plan CRP Ceftriaxone 1 gram daily Metronidazole 500mg every 6H Surgical evaluation and down the road GI for colonoscopy Discussed with SMITA Orantes regarding management Repeat the blood cultures makenzie Burrell MD
[2017-05-29] MEDS: DOCUSATE SODIUM 100 MG CAPSULE (FP) PO SCH ×2 (13:36→22:17)
[2017-05-29] MEDS: ROSUVASTATIN CA 10 MG TABLET (FP) PO SCH (22:17)
[2017-05-30] MEDS: HYDROmorphone HCL CARPU-JECT 1 MG/1 ML DISP.SYRIN IVPB PRN ×5 (01:54→20:03)
[2017-05-30] MEDS: METRONIDAZOLE 500 MG PREMIXED 100 ML IVPB SCH ×3 (05:11→17:40)
[2017-05-30] MEDS: NAPH,MB-DB/K PH,MBDB POWDER PACKET PO SCH ×3 (05:11→22:11)
[2017-05-30] MEDS: DOCUSATE SODIUM 100 MG CAPSULE (FP) PO SCH ×3 (05:11→21:35)
--- NOTE | 2017-05-30 06:25 | PN ---
Progress Note, Physician Chief Complaint: ID Ceftriaxone Metronidazole Pain seeks out of proportion to physical findings No fevers - Current Medication List Current Medications: Active Medications Acetaminophen (Tylenol -) 650 mg PO Q4H PRN PRN Reason: FEVER OR PAIN Amlodipine Besylate (Norvasc -) 5 mg PO DAILY [facility] Last Admin: 05/29/17 10:38 Dose: 5 mg Docusate Sodium (Colace -) 100 mg PO TID [facility] Last Admin: 05/30/17 05:11 Dose: Not Given Ezetimibe (Zetia -) 10 mg PO DAILY [facility] Last Admin: 05/29/17 10:38 Dose: 10 mg Enoxaparin Sodium (Lovenox -) 40 mg SQ DAILY [facility] Last Admin: 05/29/17 10:38 Dose: 40 mg Hydromorphone HCl (Dilaudid Injection -) 2 mg IVPB Q4H PRN PRN Reason: PAIN Last Admin: 05/30/17 01:54 Dose: 2 mg Famotidine/Sodium Chloride (Pepcid 20 Mg Premixed Ivpb -) 50 mls @ 100 mls/hr IVPB BID [facility] Last Admin: 05/29/17 22:17 Dose: 100 mls/hr Potassium Chloride/Sodium Chloride (Ns+20 Meq Kcl -) 1,000 mls @ 75 mls/hr IV ASDIR [facility] Last Admin: 05/29/17 10:44 Dose: 75 mls/hr Metronidazole (Flagyl 500mg Premixed Ivpb -) 100 mls @ 100 mls/hr IVPB Q6H [facility] Last Admin: 05/30/17 05:11 Dose: 100 mls/hr Ceftriaxone Sodium 1 gm/ (Dextrose) 50 mls @ 100 mls/hr IVPB DAILY [facility] Lactobacillus Acidophilus (Bacid -) 1 tab PO DAILY [facility] Last Admin: 05/29/17 10:39 Dose: 1 tab Lorazepam (Ativan -) 1 mg PO TID PRN PRN Reason: ANXIETY Last Admin: 05/29/17 22:17 Dose: 1 mg Magnesium Hydroxide (Milk Of Magnesia -) 30 ml PO PRN PRN PRN Reason: CONSTIPATION Last Admin: 05/29/17 11:27 Dose: 30 ml Ondansetron HCl (Zofran Injection) 4 mg IVPB Q6H PRN PRN Reason: NAUSEA Last Admin: 05/28/17 11:39 Dose: 4 mg Oxycodone/Acetaminophen (Percocet 5/325 -) 1 combo PO Q4H PRN PRN Reason: PAIN LEVEL 6-10 Last Admin: 05/29/17 13:36 Dose: 1 combo Potassium Phos/Sodium Phos (Phos-Nak Packet -) 1 packet PO TID EMILIANO Last Admin: 05/30/17 05:11 Dose: 1 packet Promethazine HCl (Phenergan Injection -) 12.5 mg IM Q6H PRN PRN Reason: NAUSEA AND/OR VOMITING Rosuvastatin Calcium (Crestor -) 10 mg PO HS [facility] Last Admin: 05/29/17 22:17 Dose: 10 mg - Objective Vital Signs: Vital Signs Temperature 97.7 F 05/30/17 02:00 Pulse Rate 103 H 05/30/17 02:00 Respiratory Rate 17 05/30/17 02:00 Blood Pressure 152/94 05/30/17 02:00 O2 Sat by Pulse Oximetry (%) 96 05/30/17 04:13 Constitutional: Yes: Well Nourished, No Distress HENT: Yes: WNL, Atraumatic Neck: Yes: WNL, Supple Cardiovascular: Yes: Regular Rate and Rhythm, S1, S2. No: Murmur Respiratory: Yes: WNL, Regular, CTA Bilaterally Gastrointestinal: Yes: WNL, Normal Bowel Sounds, Soft, Tenderness, Other (lower abd tenderness LLQ). No: Tenderness, Rebound Labs: CBC, BMP 05/29/17 07:42 05/29/17 07:42 Assessment/Plan Microbiology 05/26/17 11:15 Blood - Peripheral Venous Blood Culture - Final Clostridium Paraputrificum 05/27/17 09:55 Blood - Peripheral Venous Blood Culture - Preliminary Pending Organism 05/27/17 09:50 Blood - Peripheral Venous Blood Culture - Preliminary Pending Organism 05/26/17 11:02 Blood - Peripheral Venous Blood Culture - Preliminary Pending Organism Laboratory Tests 05/29/17 05/29/17 05/29/17 07:40 07:42 07:42 WBC 12.3 H Hgb 12.8 Plt Count 143 BUN 8 D Creatinine 0.9 Total Bilirubin 3.6 H D AST 28 ALT 29 Alkaline Phosphatase 59 C-Reactive Protein 23.2 H Total Protein 6.1 L Albumin 3.0 L Assessment Acute diverticulitis with possibility of perforation viscus Clostridium bacteremia Pain management issues Elevated Bilirubin ? Rere Plan Repeat the blood cultures Note CRP very high Screening Hepatitis C and HIV infection Liver sonogram Surgical consultation Will need colonoscopy when stable and improved Continue antibiotics Repeat blood cultures Ashanti PEREZ
[2017-05-30 09:14] LABS: MCH 28.4 pg (25.7-33.7); MCHC 35.3 g/dl (32.0-35.9); MEAN CELL VOLUME 80.5 fl (80-96); MEAN PLT VOLUME 8.7 fl (7.5-11.1); PLATELET COUNT 172 K/MM3 (134-434); WHITE BLOOD COUNT 14.9 K/mm3 (4.0-10.8)
[2017-05-30 09:23] LABS: ALK PHOS 71 U/L (32-92); ANION GAP 7 (8-16); BILIRUBIN,TOTAL 2.8 mg/dl (0.2-1.0); CALCIUM 8.1 mg/dl (8.4-10.2); CO2 25 mmol/L (22-28); CREATININE 0.7 mg/dl (0.6-1.3); GLUCOSE,RANDOM 89 mg/dl (74-106); SGOT/AST 29 U/L (10-42); SGPT/ALT 26 U/L (10-40); TOT PROT 5.8 g/dl (6.4-8.3)
[2017-05-30] MEDS: EZETIMIBE 10 MG TABLET (FP) PO SCH (09:30)
[2017-05-30] MEDS: ENOXAPARIN NA (PORCINE) 40 MG/0.4 ML DISP.SYRIN SQ SCH (09:30)
[2017-05-30] MEDS: FAMOTIDINE 20 MG/50 ML IVPB 50 ML IVPB SCH ×2 (09:30→21:35)
[2017-05-30] MEDS: LACTOBACILLUS ACIDOPHILUS 1 EACH TAB (FP) PO SCH (09:31)
[2017-05-30] MEDS: amLODIPine BESYLATE 5 MG TABLET (FP) PO SCH (09:31)
[2017-05-30] MEDS: CEFTRIAXONE 50 ML IVPB SCH (09:54)
[2017-05-30] MEDS: SODIUM CHLORIDE 0.9%/KCL 1,000 ML IV SCH (09:56)
[2017-05-30 10:49] LABS: PLATELET ESTIMATE ADEQUATE (NORMAL)
--- NOTE | 2017-05-30 11:15 | PN ---
Physical Exam: SUBJECTIVE: Patient seen and examined at bedside. OBJECTIVE: Vital Signs Period Temp Pulse Resp BP Sys/Salter Pulse Ox Last 24 Hr 97.7 F-99.4 F 94-118 17-19 118-160/74-108 95-97 GENERAL: The patient is awake, alert, and fully oriented, in distress due to pain. LUNGS: Breath sounds equal, clear to auscultation bilaterally, no wheezes, no crackles, no accessory muscle use. HEART: Regular rate and rhythm, S1, S2 without murmur, rub or gallop. ABDOMEN: Soft, nondistended, normoactive bowel sounds, no guarding, no rebound. TTP in lower abdomen and suprapubic. Non-palpable bladder. EXTREMITIES: 2+ pulses, warm, well-perfused, no edema. NEUROLOGICAL: Cranial nerves II through XII grossly intact. Normal speech, gait steady. PSYCH: Demanding narcotics throughout exam. Using foul and inappropriate language. SKIN: Warm, dry, normal turgor, no rashes or lesions noted Laboratory Results - last 24 hr 05/29/17 05/30/17 05/30/17 07:40 06:00 06:00 WBC 14.9 H RBC 4.26 Hgb 12.1 Hct 34.3 L MCV 80.5 MCH 28.4 MCHC 35.3 RDW 13.0 Plt Count 172 D MPV 8.7 Neutrophils % Y Neutrophils % (Manual) 79 Band Neuts % (Manual) 4 D Lymphocytes % Y Lymphocytes % (Manual) 10 D Monocytes % (Manual) 6 Eosinophils % (Manual) 1 Platelet Estimate Adequate Sodium 132 L Potassium 3.4 L Chloride 100 Carbon Dioxide 25 Anion Gap 7 L BUN 7 Creatinine 0.7 D Creat Clearance w eGFR > 60 Random Glucose 89 Calcium 8.1 L Total Bilirubin 2.8 H D AST 29 ALT 26 Alkaline Phosphatase 71 D C-Reactive Protein 23.2 H Total Protein 5.8 L Albumin 3.0 L Active Medications Generic Name Dose Route Start Last Admin Trade Name Freq PRN Reason Stop Dose Admin Acetaminophen 650 mg 05/27/17 10:41 Tylenol - PO Q4H PRN FEVER OR PAIN Amlodipine Besylate 5 mg 05/28/17 10:00 05/30/17 09:31 Norvasc - PO 5 mg DAILY EMILIANO Administration Docusate Sodium 100 mg 05/29/17 14:00 05/30/17 05:11 Colace - PO Not Given TID EMILIANO Ezetimibe 10 mg 05/28/17 10:00 05/30/17 09:30 Zetia - PO 10 mg DAILY EMILIANO Administration Enoxaparin Sodium 40 mg 05/27/17 10:00 05/30/17 09:30 Lovenox - SQ 40 mg DAILY EMILIANO Administration Hydromorphone HCl 2 mg 05/28/17 11:24 05/30/17 06:57 Dilaudid Injection - IVPB 2 mg Q4H PRN Administration PAIN Famotidine/Sodium Chloride 50 mls @ 100 mls/hr 05/27/17 13:15 05/30/17 09:30 Pepcid 20 Mg Premixed Ivpb - IVPB 100 mls/hr BID EMILIANO Administration Potassium Chloride/Sodium Chloride 1,000 mls @ 75 mls/hr 05/28/17 10:52 09:56 Ns+20 Meq Kcl - IV 75 mls/hr ASDIR EMILIANO Administration Metronidazole 100 mls @ 100 mls/hr 05/29/17 12:00 05/30/17 05:11 Flagyl 500mg Premixed Ivpb - IVPB 100 mls/hr Q6H EMILIANO Administration Ceftriaxone Sodium 50 mls @ 100 mls/hr 05/30/17 10:00 05/30/17 09:54 Rocephin 1gm Ivpb (Pre-Docked) IVPB 100 mls/hr DAILY EMILIANO Administration Lactobacillus Acidophilus 1 tab 05/28/17 10:00 05/30/17 09:31 Bacid - PO 1 tab DAILY EMILIANO Administration Lorazepam 1 mg 05/29/17 08:01 05/29/17 22:17 Ativan - PO 1 mg TID PRN Administration ANXIETY Magnesium Hydroxide 30 ml 05/29/17 10:32 05/29/17 11:27 Milk Of Magnesia - PO 30 ml PRN PRN Administration CONSTIPATION Ondansetron HCl 4 mg 05/26/17 16:17 05/28/17 11:39 Zofran Injection IVPB 4 mg Q6H PRN Administration NAUSEA Oxycodone/Acetaminophen 1 combo 05/28/17 10:32 05/29/17 13:36 Percocet 5/325 - PO 1 combo Q4H PRN Administration PAIN LEVEL 6-10 Potassium Phos/Sodium Phos 1 packet 05/28/17 14:00 05/30/17 05:11 Phos-Nak Packet - PO 1 packet TID EMILIANO Administration Promethazine HCl 12.5 mg 05/27/17 20:00 Phenergan Injection - IM Q6H PRN NAUSEA AND/OR VOMITING Rosuvastatin Calcium 10 mg 05/27/17 22:00 05/29/17 22:17 Crestor - PO 10 mg HS EMILIANO Administration Microbiology 05/27/17 09:50 Blood - Peripheral Venous Blood Culture - Final Clostridium Paraputrificum 05/26/17 11:02 Blood - Peripheral Venous Blood Culture - Final Clostridium Paraputrificum 05/26/17 11:15 Blood - Peripheral Venous Blood Culture - Final Clostridium Paraputrificum 05/27/17 09:55 Blood - Peripheral Venous Blood Culture - Final Clostridium Paraputrificum ASSESSMENT/PLAN: A: 57 yo man with diverticulitis and Clostridium bacteremia. He has severe abdominal pain which appears to be disproportionate to abdominal exam. P: 1. Diverticulitis - Pain improved, tolerating liquid diet - Continue Zosyn (05/26-05/28), Ceftriaxone (05/30- ), Flagyl (05/27- ) - Continue Percocet with hydromorphone for breakthrough pain - Surgical evaluation pending (multiple episodes of diverticulitis, now with bacteremia, r/o perforation) 2. Sepsis - Clostridum paraputrificum in all cultures 05/26 and 05/27 (sensitivities pending) - repeat blood cx pending - Echo report pending - Antibiotics as above - Follow fever - WBC 20.8->11.7->11.3->12.3->14.9 - trend WBC - ID following 3. Pain - pain disproportionate to exam findings - continue Dilaudid- pt requesting IVP. Would continue with IVPB on pump 4. Hyperbilirubinemia (isolated) - ? gilbert's - CMP - direct bili - liver U/S pending 5. HTN - BP at goal - slightly elevated this AM - likely from pain - monitor - Continue Amlodipine 6. HLD - Continue Zetia and Crestor 7. Anxiety - Continue PO Ativan- would not change route 8. F/E/N - NS w/20mEq KCl@ 75ml/hr - Tolerating full liquid diet - replete prn 9. PPX - Lovenox 40mg sq daily Dispo: Requires continued inpatient management of acute medical conditions. Visit type - Emergency Visit Emergency Visit: Yes ED Registration Date: 05/26/17 Care time: The patient presented to the Emergency Department on the above date and was hospitalized for further evaluation of their emergent condition. - New Patient This patient is new to me today: Yes Date on this admission: 05/31/17 - Critical Care Critical Care patient: No
[2017-05-30] MEDS ORDERED: LORazepam 0.5 MG TABLET ONE ×2 (13:45→21:38)
[2017-05-30] MEDS: LORazepam 1 MG TABLET PO PRN ×2 (13:47→21:39)
[2017-05-30] MEDS: ROSUVASTATIN CA 10 MG TABLET (FP) PO SCH (21:35)
[2017-05-31] MEDS ORDERED: HYDROmorphone HCL CARPU-JECT 2 MG/1 ML DISP.SYRIN ONE (01:45)
[2017-05-31] MEDS: HYDROmorphone HCL CARPU-JECT 1 MG/1 ML DISP.SYRIN IVPB PRN ×6 (01:51→21:19)
[2017-05-31] MEDS ORDERED: LORazepam 0.5 MG TABLET ONE ×3 (05:19→21:11)
[2017-05-31] MEDS: LORazepam 1 MG TABLET PO PRN ×3 (05:20→21:23)
[2017-05-31] MEDS: METRONIDAZOLE 500 MG PREMIXED 100 ML IVPB SCH ×4 (06:10→17:00)
[2017-05-31] MEDS: NAPH,MB-DB/K PH,MBDB POWDER PACKET PO SCH ×3 (06:11→21:22)
[2017-05-31] MEDS: DOCUSATE SODIUM 100 MG CAPSULE (FP) PO SCH ×3 (06:11→21:21)
--- NOTE | 2017-05-31 07:01 | CONSULT ---
- Consultation REQUESTING PROVIDER: Rolanda Jama NP CONSULT REQUEST: We have been asked to surgically evaluate this patient for management of abdominal pain. PCP:Inez Reza HISTORY OF PRESENT ILLNESS: 57 y/o male presneted w/ abdominal pain; he apparently has had a h/o diverticulosis and/or symptomatic diverticulitis in the past; he presented here w/LLQ and suprapubic abdominal pain of recent sudden onset; w/u was done in the ER and he was admitted w/ diverticulitis; of note is that he had a positive blood culture for a species of Clostridium for which he is being txed w/IVABS; during this interview he was verbally abusive and demanding of IV push Dilaudid and was asking if there were anything stronger ; his complaints seemed out of proportion to his situation because when distracted by a discussion about music he seemed to move around and act as if he had no pain at all; nevertheless his h/o was reviewed as noted by other clinicians; his was present as well; 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 He has no nausea and/or vomiting. He has never had a elevated temperature since he has been here. PMHx: as above PSHx: none Home Medications Medication Instructions Recorded NK [No Known Home Medication] 05/26/17 Allergies Allergy/AdvReac Type Severity Reaction Status Date / Time No Known Allergies Allergy Verified 05/26/17 09:27 PHYSICAL EXAM: GENERAL: Awake, alert, and fully oriented, in no acute distress. HEAD: Normal with no signs of trauma. EYES:, sclera anicteric, conjunctiva clear. NECK: Normal ROM, supple without lymphadenopathy, JVD, or masses. ABDOMEN: Soft, nontender, not distended, normoactive bowel sounds, no guarding, no rebound, no masses. No organomegaly; no evidence of an acute surgical abdomen; no hernias. MUSCULOSKELETAL: Normal ROM at all joints. No bony deformities or tenderness. No CVA tenderness. UPPER EXTREMITIES: 2+ pulses, warm, well-perfused. No cyanosis. Cap refill <2 seconds. No peripheral edema. LOWER EXTREMITIES: 2+ pulses, warm, well-perfused. No calf tenderness. No peripheral edema. NEUROLOGICAL: Normal speech, gait normal. PSYCH: Not cooperative. poor eye contact. Inappropriate mood and affect. SKIN: Warm, dry, normal turgor, no rashes or lesions noted. Vital Signs Temperature 98.9 F 05/31/17 06:00 Pulse Rate 99 H 05/31/17 06:00 Respiratory Rate 18 05/31/17 06:00 Blood Pressure 155/71 05/31/17 06:00 O2 Sat by Pulse Oximetry (%) 95 05/31/17 06:12 Lab Results WBC 14.9 K/mm3 (4.0-10.8) H 05/30/17 06:00 RBC 4.26 M/mm3 (4.00-5.60) 05/30/17 06:00 Hgb 12.1 GM/dl (11.7-16.9) 05/30/17 06:00 Hct 34.3 % (35.4-49) L 05/30/17 06:00 MCV 80.5 fl (80-96) 05/30/17 06:00 MCHC 35.3 g/dl (32.0-35.9) 05/30/17 06:00 RDW 13.0 % (11.9-15.9) 05/30/17 06:00 Plt Count 172 K/MM3 (134-434) D 05/30/17 06:00 Sodium 132 mmol/L (136-145) L 05/30/17 06:00 Potassium 3.4 mmol/L (3.5-5.1) L 05/30/17 06:00 Chloride 100 mmol/L (98-107) 05/30/17 06:00 Carbon Dioxide 25 mmol/L (22-28) 05/30/17 06:00 Anion Gap 7 (8-16) L 05/30/17 06:00 BUN 7 mg/dl (7-18) 05/30/17 06:00 Creatinine 0.7 mg/dl (0.6-1.3) D 05/30/17 06:00 Random Glucose 89 mg/dl (74-106) 05/30/17 06:00 Calcium 8.1 mg/dl (8.4-10.2) L 05/30/17 06:00 CT scan a/p reviewed; labs reviewed IMP: sigmoid diverticulitis PLAN: Suggest continue present tx.; advise repeating CT scan a/p; again his c/o' s seem out of proportion to the physical findings and this has been noted by ther clinicians as well; input from other consults is appropriate and noted; will f/u; this patient was actually seen at $ PM on 05/30/17. Gio England MD FACS Visit type - Case Type Case Type: ED Admission - Emergency Emergency Visit: Yes ED Registration Date: 05/26/17 Care time: The patient presented to the Emergency Department on the above date and was hospitalized for further evaluation of their emergent condition. - New patient This patient is new to me today: Yes Date on this admission: 05/31/17 - Critical Care Critical Care patient: No
[2017-05-31 07:36] LABS: BASOPHIL 0.4 % (0-2.0); EOSINOPHIL 0.7 % (0-4.5); MCH 28.4 pg (25.7-33.7); MCHC 33.6 g/dl (32.0-35.9); MEAN CELL VOLUME 84.5 fl (80-96); MEAN PLT VOLUME 8.5 fl (7.5-11.1); NEUTROPHILS 78.3 % (42.8-82.8); PLATELET COUNT 195 K/MM3 (134-434); RDW 13.7 % (11.9-15.9); WHITE BLOOD COUNT 13.1 K/mm3 (4.0-10.0)
--- NOTE | 2017-05-31 08:12 | PN ---
Progress Note (short form) - Note Progress Note: events noted now on rocephin/flagyl continued abdominal pain requiring dilaudid seen by surgery, repeat ct scan reccd no dysuria, no diarrhea no vomiting on clear liquids Vital Signs Period Temp Pulse Resp BP Sys/Salter Pulse Ox Last 24 Hr 98.5 F-98.9 F 90-116 18-18 130-159/69-94 95-97 cor-rrr lungs clear abd soft, mild distention, c/o abdominal pain bilateral lower quadrants and suprapubic area ext no edema CBC, BMP 05/31/17 06:00 Microbiology 05/26/17 11:02 Blood - Peripheral Venous Blood Culture - Final Clostridium Paraputrificum 05/27/17 09:50 Blood - Peripheral Venous Blood Culture - Final Clostridium Paraputrificum 05/26/17 11:15 Blood - Peripheral Venous Blood Culture - Final Clostridium Paraputrificum 05/27/17 09:55 Blood - Peripheral Venous Blood Culture - Final Clostridium Paraputrificum a/p anaerobic bacteremia diverticulitis repeat ct scan abd/pelvis today surgical f/u continue antiibotics
[2017-05-31 08:29] LABS: HIV 1 & 2 AB NEGATIVE; HIV 1 AGp24 NEGATIVE
--- NOTE | 2017-05-31 08:38 | PN ---
Physical Exam: SUBJECTIVE: Patient seen and examined, reports ongoing left lower quadrant pain with nausea. requesting his IV Dilaudid as IV push rather than IV piggyback. OBJECTIVE:patient is a 57 y/o male with a past medical history of HTN, HLD, [place]- 2007, diverticulitis, and Perry's esophagus. Patient was admitted from the emergency department for sepsis and diverticulitis. Vital Signs Period Temp Pulse Resp BP Sys/Salter Pulse Ox Last 24 Hr 98.5 F-98.9 F 90-116 18-18 130-159/69-94 95-97 GENERAL: The patient is awake, alert, and fully oriented, anxious. HEAD: Normal with no signs of trauma. EYES: PERRL, extraocular movements intact, sclera anicteric, conjunctiva clear. No ptosis. ENT: Ears normal, nares patent, oropharynx clear without exudates, moist mucous membranes. NECK: Trachea midline, full range of motion, supple. LUNGS: Breath sounds equal, clear to auscultation bilaterally, no wheezes, no crackles, no accessory muscle use. HEART: Regular rate and rhythm, S1, S2 without murmur, rub or gallop. ABDOMEN: Soft, left lower quadrant tenderness, , nondistended, normoactive bowel sounds, no guarding, no rebound, no hepatosplenomegaly, no masses. EXTREMITIES: 2+ pulses, warm, well-perfused, no edema. NEUROLOGICAL: Cranial nerves II through XII grossly intact. Normal speech, ambulatory throughout bedside steady gait noted. PSYCH: demanding and anxious. SKIN: Warm, dry, normal turgor, no rashes or lesions noted Laboratory Results - last 24 hr 05/30/17 05/30/17 05/31/17 06:00 06:00 06:00 WBC 14.9 H RBC 4.26 Hgb 12.1 Hct 34.3 L MCV 80.5 MCH 28.4 MCHC 35.3 RDW 13.0 Plt Count 172 D MPV 8.7 Neutrophils % Y Neutrophils % (Manual) 79 Band Neuts % (Manual) 4 D Lymphocytes % Y Lymphocytes % (Manual) 10 D Monocytes % Monocytes % (Manual) 6 Eosinophils % Eosinophils % (Manual) 1 Basophils % Platelet Estimate Adequate Sodium 132 L Potassium 3.4 L Chloride 100 Carbon Dioxide 25 Anion Gap 7 L BUN 7 Creatinine 0.7 D Creat Clearance w eGFR > 60 Random Glucose 89 Calcium 8.1 L Total Bilirubin 2.8 H D AST 29 ALT 26 Alkaline Phosphatase 71 D Total Protein 5.8 L Albumin 3.0 L HIV 1&2 Antibody Screen Negative HIV P24 Antigen Negative 05/31/17 06:00 WBC 13.1 H RBC 4.37 Hgb 12.4 Hct 36.9 MCV 84.5 MCH 28.4 MCHC 33.6 RDW 13.7 Plt Count 195 MPV 8.5 Neutrophils % 78.3 Neutrophils % (Manual) Band Neuts % (Manual) Lymphocytes % 10.4 Lymphocytes % (Manual) Monocytes % 10.2 Monocytes % (Manual) Eosinophils % 0.7 Eosinophils % (Manual) Basophils % 0.4 Platelet Estimate Sodium Potassium Chloride Carbon Dioxide Anion Gap BUN Creatinine Creat Clearance w eGFR Random Glucose Calcium Total Bilirubin AST ALT Alkaline Phosphatase Total Protein Albumin HIV 1&2 Antibody Screen HIV P24 Antigen Active Medications Generic Name Dose Route Start Last Admin Trade Name Freq PRN Reason Stop Dose Admin Acetaminophen 650 mg 05/27/17 10:41 Tylenol - PO Q4H PRN FEVER OR PAIN Amlodipine Besylate 5 mg 05/28/17 10:00 05/30/17 09:31 Norvasc - PO 5 mg DAILY EMILIANO Administration Docusate Sodium 100 mg 05/29/17 14:00 05/31/17 06:11 Colace - PO 100 mg TID EMILIANO Administration Ezetimibe 10 mg 05/28/17 10:00 05/30/17 09:30 Zetia - PO 10 mg DAILY EMILIANO Administration Enoxaparin Sodium 40 mg 05/27/17 10:00 05/30/17 09:30 Lovenox - SQ 40 mg DAILY EMILIANO Administration Hydromorphone HCl 2 mg 05/28/17 11:24 05/31/17 06:10 Dilaudid Injection - IVPB 2 mg Q4H PRN Administration PAIN Famotidine/Sodium Chloride 50 mls @ 100 mls/hr 05/27/17 13:15 05/30/17 21:35 Pepcid 20 Mg Premixed Ivpb - IVPB 100 mls/hr BID EMILIANO Administration Potassium Chloride/Sodium Chloride 1,000 mls @ 75 mls/hr 05/28/17 10:52 09:56 Ns+20 Meq Kcl - IV 75 mls/hr ASDIR EMILIANO Administration Metronidazole 100 mls @ 100 mls/hr 05/29/17 12:00 05/31/17 06:10 Flagyl 500mg Premixed Ivpb - IVPB 100 mls/hr Q6H EMILIANO Administration Ceftriaxone Sodium 50 mls @ 100 mls/hr 05/30/17 10:00 05/30/17 09:54 Rocephin 1gm Ivpb (Pre-Docked) IVPB 100 mls/hr DAILY EMILIANO Administration Lactobacillus Acidophilus 1 tab 05/28/17 10:00 05/30/17 09:31 Bacid - PO 1 tab DAILY EMILIANO Administration Lorazepam 1 mg 05/29/17 08:01 05/31/17 05:20 Ativan - PO 1 mg TID PRN Administration ANXIETY Magnesium Hydroxide 30 ml 05/29/17 10:32 05/29/17 11:27 Milk Of Magnesia - PO 30 ml PRN PRN Administration CONSTIPATION Ondansetron HCl 4 mg 05/26/17 16:17 05/28/17 11:39 Zofran Injection IVPB 4 mg Q6H PRN Administration NAUSEA Oxycodone/Acetaminophen 1 combo 05/28/17 10:32 05/29/17 13:36 Percocet 5/325 - PO 1 combo Q4H PRN Administration PAIN LEVEL 6-10 Potassium Phos/Sodium Phos 1 packet 05/28/17 14:00 05/31/17 06:11 Phos-Nak Packet - PO 1 packet TID EMILIANO Administration Promethazine HCl 12.5 mg 05/27/17 20:00 Phenergan Injection - IM Q6H PRN NAUSEA AND/OR VOMITING Rosuvastatin Calcium 10 mg 05/27/17 22:00 05/30/17 21:35 Crestor - PO 10 mg HS EMILIANO Administration Microbiology 05/26/17 11:02 Blood - Peripheral Venous Blood Culture - Final Clostridium Paraputrificum 05/27/17 09:50 Blood - Peripheral Venous Blood Culture - Final Clostridium Paraputrificum 05/26/17 11:15 Blood - Peripheral Venous Blood Culture - Final Clostridium Paraputrificum 05/27/17 09:55 Blood - Peripheral Venous Blood Culture - Final Clostridium Paraputrificum imaging CT of abdomen/pelvis with oral and IV contrast(May 26) findings consistent with acute diverticulitis involving the proximal and mid sigmoid colon with significant stranding of the surrounding mesenteric fat, minimal free fluid of pelvis. chest xray, minimal submental atelectasis of lung bases ASSESSMENT/PLAN: 1. Diverticulitis - reports ongoing left lower quadrant pain will order a CT scan of abdomen and pelvis with IV and oral contrast, surgery, Dr England, consulted and followed. - Continue Zosyn (05/26-05/28), Ceftriaxone (05/30- ), Flagyl (05/27- ) - Continue Percocet with hydromorphone for breakthrough pain 2. Sepsis - Clostridum paraputrificum in all cultures 05/26 and 05/27 anearobe continue flagy - echo, LV, echo 60-65%, no obvious vegetation - continue flagyl and rocephin - afebrile leukocytosis improving noted - ID fconsulted and following 3. HTN - BP at goal - Continue Amlodipine 6. HLD - Continue Zetia and Crestor 7. Anxiety - Continue PO Ativan 8. F/E/N - NS w/20mEq KCl@ 75ml/hr - Tolerating full liquid diet - replete prn 9. PPX - Lovenox 40mg sq daily Dispo: Requires continued inpatient management of acute medical conditions. Visit type - Emergency Visit Emergency Visit: Yes ED Registration Date: 05/26/17 Care time: The patient presented to the Emergency Department on the above date and was hospitalized for further evaluation of their emergent condition. - New Patient This patient is new to me today: No - Critical Care Critical Care patient: No - Discharge Referral Referred to [facility] No
[2017-05-31] MEDS: CEFTRIAXONE 50 ML IVPB SCH (09:31)
[2017-05-31] MEDS: ENOXAPARIN NA (PORCINE) 40 MG/0.4 ML DISP.SYRIN SQ SCH (09:32)
[2017-05-31] MEDS: LACTOBACILLUS ACIDOPHILUS 1 EACH TAB (FP) PO SCH (09:32)
[2017-05-31] MEDS: EZETIMIBE 10 MG TABLET (FP) PO SCH (09:33)
[2017-05-31] MEDS: amLODIPine BESYLATE 5 MG TABLET (FP) PO SCH (09:33)
[2017-05-31] MEDS: FAMOTIDINE 20 MG/50 ML IVPB 50 ML IVPB SCH ×2 (10:00→21:20)
[2017-05-31 11:40] LABS: BILIRUBIN,DIRECT 0.8 mg/dL (0.0-0.2); PHOSPHOROUS 2.4 mg/dL (2.5-4.9)
[2017-05-31 11:44] LABS: ANION GAP 9 (8-16); CO2 28 mmol/L (22-28); CREATININE 0.6 mg/dl (0.6-1.3); GLUCOSE,RANDOM 118 mg/dl (74-106)
[2017-05-31 11:45] LABS: ALBUMIN 2.6 g/dl (3.5-5.0); ALK PHOS 99 U/L (32-92); BILIRUBIN,TOTAL 1.5 mg/dl (0.2-1.0); SGOT/AST 30 U/L (10-42); SGPT/ALT 36 U/L (10-40)
--- NOTE | 2017-05-31 17:13 | PN ---
Progress Note (short form) - Note Progress Note: Attending Surgeon No new c/o ? VSS AF abdomen-soft; minimal LLQ and suprapubic tenderness WBC noted CT scan done today findings reviewed. IMP: diverticulitis PLAN: continue present tx.; will f/u. Gio England MD FACS
[2017-05-31] MEDS ORDERED: cefTRIAXone 1 GM/50 ML BAG (PRE-DOCKED) IVPB ONE (20:06)
[2017-05-31] MEDS: SODIUM CHLORIDE 0.9%/KCL 1,000 ML IV SCH (20:26)
[2017-05-31] MEDS: ROSUVASTATIN CA 10 MG TABLET (FP) PO SCH (21:21)
[2017-05-31] MEDS: ONDANSETRON 4 MG/2 ML VIAL IVPB PRN (21:44)
[2017-06-01] MEDS: METRONIDAZOLE 500 MG PREMIXED 100 ML IVPB SCH ×4 (00:02→17:47)
[2017-06-01] MEDS: HYDROmorphone HCL CARPU-JECT 1 MG/1 ML DISP.SYRIN IVPB PRN ×2 (04:31→09:05)
[2017-06-01] MEDS ORDERED: LORazepam 0.5 MG TABLET ONE (04:54)
[2017-06-01] MEDS: LORazepam 1 MG TABLET PO PRN (04:55)
[2017-06-01] MEDS: NAPH,MB-DB/K PH,MBDB POWDER PACKET PO SCH ×2 (06:29→21:42)
[2017-06-01] MEDS: DOCUSATE SODIUM 100 MG CAPSULE (FP) PO SCH ×3 (06:29→21:39)
[2017-06-01 07:54] LABS: BASOPHIL 0.4 % (0-2.0); EOSINOPHIL 1.4 % (0-4.5); MCH 29.1 pg (25.7-33.7); MCHC 34.1 g/dl (32.0-35.9); MEAN CELL VOLUME 85.3 fl (80-96); MEAN PLT VOLUME 8.4 fl (7.5-11.1); NEUTROPHILS 76.8 % (42.8-82.8); PLATELET COUNT 234 K/MM3 (134-434); RDW 13.3 % (11.9-15.9); WHITE BLOOD COUNT 11.4 K/mm3 (4.0-10.8)
[2017-06-01 08:11] LABS: ALBUMIN 2.7 g/dl (3.5-5.0); ALK PHOS 99 U/L (32-92); ANION GAP 7 (8-16); BILIRUBIN,TOTAL 1.3 mg/dl (0.2-1.0); CALCIUM 8.2 mg/dl (8.4-10.2); CO2 26 mmol/L (22-28); CREATININE 0.8 mg/dl (0.6-1.3); GLUCOSE,RANDOM 104 mg/dl (74-106); MAGNESIUM 2.1 mg/dL (1.8-2.4); PHOSPHOROUS 3.4 mg/dl (2.5-4.6); SGOT/AST 55 U/L (10-42); SGPT/ALT 40 U/L (10-40); TOT PROT 5.5 g/dl (6.4-8.3)
[2017-06-01] MEDS: LACTOBACILLUS ACIDOPHILUS 1 EACH TAB (FP) PO SCH (09:03)
[2017-06-01] MEDS: amLODIPine BESYLATE 5 MG TABLET (FP) PO SCH (09:03)
[2017-06-01] MEDS: EZETIMIBE 10 MG TABLET (FP) PO SCH (09:04)
[2017-06-01] MEDS: FAMOTIDINE 20 MG/50 ML IVPB 50 ML IVPB SCH (09:04)
[2017-06-01] MEDS: ENOXAPARIN NA (PORCINE) 40 MG/0.4 ML DISP.SYRIN SQ SCH (09:04)
[2017-06-01] MEDS: cefTRIAXone 2 GM/100 ML BAG (PRE-DOCKED) IVPB SCH (09:58)
--- NOTE | 2017-06-01 10:04 | PN ---
Progress Note (short form) - Note Progress Note: Attending Surgeon Seen in f/u; only c/o right hip pain today VSS AF abdomen-soft; flat and non tender WBC-11.4 today IMP: diverticulitis PLAN : continue present tx. Gio England MD FACS
--- NOTE | 2017-06-01 11:33 | PN ---
Physical Exam: SUBJECTIVE: Patient seen and examined, reports some improvement of abdominal pain reports craving [place] food. OBJECTIVE:patient is a 57 y/o male with a past medical history of HTN, HLD, [place]- 2007, diverticulitis, and Perry's esophagus. Patient was admitted from the emergency department for sepsis and diverticulitis. Vital Signs Period Temp Pulse Resp BP Sys/Salter Pulse Ox Last 24 Hr 68.6 F-98.6 F 93-108 18-18 134-174/88-95 95-98 GENERAL: The patient is awake, alert, and fully oriented, in no acute distress. HEAD: Normal with no signs of trauma. EYES: PERRL, extraocular movements intact, sclera anicteric, conjunctiva clear. No ptosis. ENT: Ears normal, nares patent, oropharynx clear without exudates, moist mucous membranes. NECK: Trachea midline, full range of motion, supple. LUNGS: Breath sounds equal, clear to auscultation bilaterally, no wheezes, no crackles, no accessory muscle use. HEART: Regular rate and rhythm, S1, S2 without murmur, rub or gallop. ABDOMEN: Soft, nontender, nondistended, normoactive bowel sounds, no guarding, no rebound, no hepatosplenomegaly, no masses. EXTREMITIES: 2+ pulses, warm, well-perfused, no edema. NEUROLOGICAL: Cranial nerves II through XII grossly intact. Normal speech, gait not observed. PSYCH: Normal mood, normal affect. SKIN: Warm, dry, normal turgor, no rashes or lesions noted Laboratory Results - last 24 hr 05/31/17 06/01/17 06/01/17 06:00 07:00 07:00 WBC 11.4 H RBC 4.16 Hgb 12.1 Hct 35.5 MCV 85.3 MCH 29.1 MCHC 34.1 RDW 13.3 Plt Count 234 D MPV 8.4 Neutrophils % 76.8 Lymphocytes % 12.2 D Monocytes % 9.2 Eosinophils % 1.4 Basophils % 0.4 Sodium 138 134 L Potassium 3.5 3.5 Chloride 101 101 Carbon Dioxide 28 26 Anion Gap 9 7 L BUN 10 D 11 Creatinine 0.6 0.8 D Creat Clearance w eGFR > 60 > 60 Random Glucose 118 H D 104 Calcium 8.0 L 8.2 L Phosphorus 2.4 L 3.4 D Magnesium 2.1 Total Bilirubin 1.5 H D 1.3 H Direct Bilirubin 0.8 H AST 30 55 H D ALT 36 D 40 Alkaline Phosphatase 99 H D 99 H C-Reactive Protein Total Protein 6.0 L 5.5 L Albumin 2.6 L 2.7 L 06/01/17 07:00 WBC RBC Hgb Hct MCV MCH MCHC RDW Plt Count MPV Neutrophils % Lymphocytes % Monocytes % Eosinophils % Basophils % Sodium Potassium Chloride Carbon Dioxide Anion Gap BUN Creatinine Creat Clearance w eGFR Random Glucose Calcium Phosphorus Magnesium Total Bilirubin Direct Bilirubin AST ALT Alkaline Phosphatase C-Reactive Protein 8.3 H D Total Protein Albumin Active Medications Generic Name Dose Route Start Last Admin Trade Name Freq PRN Reason Stop Dose Admin Acetaminophen 650 mg 05/27/17 10:41 Tylenol - PO Q4H PRN FEVER OR PAIN Amlodipine Besylate 5 mg 05/28/17 10:00 06/01/17 09:03 Norvasc - PO 5 mg DAILY EMILIANO Administration Ceftriaxone Sodium 2 gm 06/01/17 10:00 06/01/17 09:58 Rocephin 2gm Ivpb (Pre-Docked) IVPB 2 gm DAILY EMILIANO Administration Protocol Docusate Sodium 100 mg 05/29/17 14:00 06/01/17 06:29 Colace - PO Not Given TID EMILIANO Ezetimibe 10 mg 05/28/17 10:00 06/01/17 09:04 Zetia - PO 10 mg DAILY EMILIANO Administration Enoxaparin Sodium 40 mg 05/27/17 10:00 06/01/17 09:04 Lovenox - SQ 40 mg DAILY EMILIANO Administration Hydromorphone HCl 2 mg 06/01/17 11:58 Dilaudid Injection - IVPB Q6H PRN PAIN Famotidine/Sodium Chloride 50 mls @ 100 mls/hr 05/27/17 13:15 06/01/17 09:04 Pepcid 20 Mg Premixed Ivpb - IVPB 100 mls/hr BID EMILIANO Administration Potassium Chloride/Sodium Chloride 1,000 mls @ 75 mls/hr 05/28/17 10:52 20:26 Ns+20 Meq Kcl - IV 75 mls/hr ASDIR EMILIANO Administration Metronidazole 100 mls @ 100 mls/hr 05/29/17 12:00 06/01/17 06:26 Flagyl 500mg Premixed Ivpb - IVPB 100 mls/hr Q6H EMILIANO Administration Lactobacillus Acidophilus 1 tab 05/28/17 10:00 06/01/17 09:03 Bacid - PO 1 tab DAILY EMILIANO Administration Lorazepam 1 mg 06/01/17 09:08 Ativan - PO TID PRN ANXIETY Magnesium Hydroxide 30 ml 05/29/17 10:32 05/29/17 11:27 Milk Of Magnesia - PO 30 ml PRN PRN Administration CONSTIPATION Ondansetron HCl 4 mg 05/26/17 16:17 05/31/17 21:44 Zofran Injection IVPB 4 mg Q6H PRN Administration NAUSEA Oxycodone/Acetaminophen 1 combo 05/28/17 10:32 05/29/17 13:36 Percocet 5/325 - PO 1 combo Q4H PRN Administration PAIN LEVEL 6-10 Potassium Phos/Sodium Phos 1 packet 05/28/17 14:00 06/01/17 06:29 Phos-Nak Packet - PO Not Given TID EMILIANO Promethazine HCl 12.5 mg 05/27/17 20:00 06/01/17 04:56 Phenergan Injection - IM 12.5 mg Q6H PRN Administration NAUSEA AND/OR VOMITING Rosuvastatin Calcium 10 mg 05/27/17 22:00 05/31/17 21:21 Crestor - PO 10 mg HS EMILIANO Administration Microbiology 05/31/17 09:50 Blood - Peripheral Venous Blood Culture - Preliminary NO GROWTH OBTAINED AFTER 24 HOURS, INCUBATION TO CONTINUE FOR 4 DAYS. 05/31/17 09:50 Blood - Peripheral Venous Blood Culture - Preliminary NO GROWTH OBTAINED AFTER 24 HOURS, INCUBATION TO CONTINUE FOR 4 DAYS. 05/26/17 11:02 Blood - Peripheral Venous Blood Culture - Final Clostridium Paraputrificum 05/27/17 09:50 Blood - Peripheral Venous Blood Culture - Final Clostridium Paraputrificum 05/26/17 11:15 Blood - Peripheral Venous Blood Culture - Final Clostridium Paraputrificum 05/27/17 09:55 Blood - Peripheral Venous Blood Culture - Final Clostridium Paraputrificum imaging CT of abdomen/pelvis with oral and IV contrast(May 26) findings consistent with acute diverticulitis involving the proximal and mid sigmoid colon with significant stranding of the surrounding mesenteric fat, minimal free fluid of pelvis. chest xray, minimal submental atelectasis of lung bases ct of abd/pelvis with contrast: interval development of serval small pockets of extraluminal air within the mid sigmoid mesentry centrally, increased pericolonic edema in association with known acute sigmoid diverticulitis, no pericolonic abscess, right hepatic lobe small vessel thrombis as per radiologist , Dr Matias ultrasound of abd: gallbladder sludge, no evidence of acute cholecytitis, mild fatty liver infiltration ASSESSMENT/PLAN: 1. Diverticulitis - repeat ct scan of abd/pelvis reviewed, discussed with general surgeon Dr England advised continue iv abx regimen - Continue Zosyn (05/26-05/28), Ceftriaxone (05/30- ), Flagyl (05/27- ) - Continue Percocet with hydromorphone for breakthrough pain 2. peripheral portal vein thrombosis - pt reports a history of blood clots in the past, however, he doesn't remember where the blood clot was localized, pt denies any history of [facility] anticoagulants - will order pt/inr and lovenox thereputic dose - case discussed with Dr Juarez, pt's pcp,he was evaluated by Dr Juarez in for a full physical, as per Dr Juarez's records patient doesn't have a history of thrombosis . - appreciate hematology input 3. Sepsis - Clostridum paraputrificum in all cultures 05/26 and 05/27, anearobe continue flagyl - echo, LV, echo 60-65%, no obvious vegetation - continue flagyl and rocephin - afebrile leukocytosis downtrending - ID fconsulted and following 4. HTN - BP at goal - Continue Amlodipine 5. HLD - Continue Zetia and Crestor 6. Anxiety - Continue PO Ativan 7. F/E/N - NS w/20mEq KCl@ 75ml/hr - Tolerating full liquid diet - replete prn 8. PPX - Lovenox 1mg/kg bid (thereputic dose) Dispo: Requires continued inpatient management of acute medical conditions. Visit type - Emergency Visit Emergency Visit: Yes ED Registration Date: 05/26/17 Care time: The patient presented to the Emergency Department on the above date and was hospitalized for further evaluation of their emergent condition. - New Patient This patient is new to me today: No - Critical Care Critical Care patient: No - Discharge Referral Referred to [facility] No
[2017-06-01] MEDS ORDERED: ENOXAPARIN NA (PORCINE) 40 MG/0.4 ML DISP.SYRIN SQ ONE (13:15)
[2017-06-01] MEDS: LORazepam 0.5 MG TABLET PO PRN ×2 (14:15→21:50)
[2017-06-01] MEDS: HYDROmorphone HCL CARPU-JECT 2 MG/1 ML DISP.SYRIN IVPB PRN ×2 (14:17→20:06)
[2017-06-01 14:23] LABS: INR 1.13 (0.82-1.09); PROTHROMBIN TIME (PATIENT) 12.6 SEC (10.2-13.0)
[2017-06-01] MEDS: RANITIDINE HCL 150 MG TABLET (FP) PO SCH (21:39)
[2017-06-01] MEDS: ROSUVASTATIN CA 10 MG TABLET (FP) PO SCH (21:39)
[2017-06-01] MEDS: ENOXAPARIN NA (PORCINE) 80 MG/0.8 ML DISP.SYRIN SQ SCH (21:39)
[2017-06-01] MEDS: SODIUM CHLORIDE 0.9%/KCL 1,000 ML IV SCH (21:43)
[2017-06-02] MEDS: METRONIDAZOLE 500 MG PREMIXED 100 ML IVPB SCH ×4 (00:22→17:02)
[2017-06-02] MEDS: HYDROmorphone HCL CARPU-JECT 2 MG/1 ML DISP.SYRIN IVPB PRN ×4 (04:05→22:49)
[2017-06-02] MEDS: ONDANSETRON 4 MG/2 ML VIAL IVPB PRN (04:24)
[2017-06-02] MEDS: DOCUSATE SODIUM 100 MG CAPSULE (FP) PO SCH ×3 (06:19→21:03)
[2017-06-02] MEDS: NAPH,MB-DB/K PH,MBDB POWDER PACKET PO SCH ×4 (06:20→21:04)
[2017-06-02 08:12] LABS: BASOPHIL 0.7 % (0-2.0); EOSINOPHIL 2.1 % (0-4.5); MCHC 34.8 g/dl (32.0-35.9); MEAN CELL VOLUME 83.3 fl (80-96); MEAN PLT VOLUME 7.6 fl (7.5-11.1); NEUTROPHILS 68.6 % (42.8-82.8); PLATELET COUNT 333 K/MM3 (134-434); WHITE BLOOD COUNT 10.3 K/mm3 (4.0-10.8)
[2017-06-02 08:25] LABS: ALBUMIN 2.8 g/dl (3.5-5.0); ALK PHOS 107 U/L (32-92); ANION GAP 6 (8-16); CALCIUM 8.2 mg/dl (8.4-10.2); CO2 28 mmol/L (22-28); CREATININE 0.9 mg/dl (0.6-1.3); GLUCOSE,RANDOM 97 mg/dl (74-106); MAGNESIUM 2.1 mg/dL (1.8-2.4); PHOSPHOROUS 3.9 mg/dl (2.5-4.6); SGOT/AST 47 U/L (10-42); SGPT/ALT 42 U/L (10-40); TOT PROT 6.3 g/dl (6.4-8.3)
--- NOTE | 2017-06-02 09:27 | PN ---
Progress Note, Physician History of Present Illness: C/O lower abdominal pain No c/o N/V Reports + flatus, liquid BM No c/o fever/ chills - Current Medication List Current Medications: Active Medications Acetaminophen (Tylenol -) 650 mg PO Q4H PRN PRN Reason: FEVER OR PAIN Amlodipine Besylate (Norvasc -) 5 mg PO DAILY [facility] Last Admin: 06/01/17 09:03 Dose: 5 mg Ceftriaxone Sodium (Rocephin 2gm Ivpb (Pre-Docked)) 2 gm IVPB DAILY [facility] PRN Reason: Protocol Last Admin: 06/01/17 09:58 Dose: 2 gm Docusate Sodium (Colace -) 100 mg PO TID [facility] Last Admin: 06/02/17 06:19 Dose: 100 mg Ezetimibe (Zetia -) 10 mg PO DAILY [facility] Last Admin: 06/01/17 09:04 Dose: 10 mg Enoxaparin Sodium (Lovenox -) 80 mg SQ BID [facility] Last Admin: 06/01/17 21:39 Dose: 80 mg Hydromorphone HCl (Dilaudid Injection -) 2 mg IVPB Q6H PRN PRN Reason: PAIN Last Admin: 06/02/17 04:05 Dose: 2 mg Potassium Chloride/Sodium Chloride (Ns+20 Meq Kcl -) 1,000 mls @ 75 mls/hr IV ASDIR [facility] Last Admin: 06/01/17 21:43 Dose: 75 mls/hr Metronidazole (Flagyl 500mg Premixed Ivpb -) 100 mls @ 100 mls/hr IVPB Q6H [facility] Last Admin: 06/02/17 06:20 Dose: 100 mls/hr Lactobacillus Acidophilus (Bacid -) 1 tab PO DAILY [facility] Last Admin: 06/01/17 09:03 Dose: 1 tab Lorazepam (Ativan -) 1 mg PO TID PRN PRN Reason: ANXIETY Last Admin: 06/01/17 21:50 Dose: 1 mg Magnesium Hydroxide (Milk Of Magnesia -) 30 ml PO PRN PRN PRN Reason: CONSTIPATION Last Admin: 05/29/17 11:27 Dose: 30 ml Ondansetron HCl (Zofran Injection) 4 mg IVPB Q6H PRN PRN Reason: NAUSEA Last Admin: 06/02/17 04:24 Dose: 4 mg Oxycodone/Acetaminophen (Percocet 5/325 -) 1 combo PO Q4H PRN PRN Reason: PAIN LEVEL 6-10 Last Admin: 05/29/17 13:36 Dose: 1 combo Potassium Phos/Sodium Phos (Phos-Nak Packet -) 1 packet PO TID [facility] Last Admin: 06/02/17 07:21 Dose: Not Given Promethazine HCl (Phenergan Injection -) 12.5 mg IM Q6H PRN PRN Reason: NAUSEA AND/OR VOMITING Last Admin: 06/01/17 04:56 Dose: 12.5 mg Ranitidine HCl (Zantac -) 150 mg PO BID [facility] Last Admin: 06/01/17 21:39 Dose: 150 mg Rosuvastatin Calcium (Crestor -) 10 mg PO HS [facility] Last Admin: 06/01/17 21:39 Dose: 10 mg - Objective Vital Signs: Vital Signs Temperature 98.5 F 06/02/17 05:00 Pulse Rate 89 06/02/17 05:00 Respiratory Rate 18 06/02/17 09:00 Blood Pressure 126/84 06/02/17 05:00 O2 Sat by Pulse Oximetry (%) 98 06/02/17 09:00 Constitutional: Yes: No Distress Eyes: Yes: Conjunctiva Clear Cardiovascular: Yes: Regular Rate and Rhythm, S1, S2 Respiratory: Yes: CTA Bilaterally Gastrointestinal: Yes: Normal Bowel Sounds, Soft, Tenderness, Other (+ lower abdominal tenderness no mass/ rebound/ rigidity) Edema: No Labs: CBC, BMP 06/02/17 07:30 06/02/17 07:30 INR, PTT INR 1.13 (0.82-1.09) 06/01/17 13:10 Assessment/Plan Acute sigmoid diverticulitis Anaerobic bacteremia/ sepsis secondary to GI source Fever/ leukocytosis- improved Portal vein thrombosis Continue ceftriaxone/ flagyl GI evaluation
[2017-06-02] MEDS: RANITIDINE HCL 150 MG TABLET (FP) PO SCH ×2 (09:31→21:03)
[2017-06-02] MEDS: EZETIMIBE 10 MG TABLET (FP) PO SCH (09:31)
[2017-06-02] MEDS: ENOXAPARIN NA (PORCINE) 80 MG/0.8 ML DISP.SYRIN SQ SCH ×2 (09:31→21:04)
[2017-06-02] MEDS: cefTRIAXone 2 GM/100 ML BAG (PRE-DOCKED) IVPB SCH (09:31)
[2017-06-02] MEDS: LACTOBACILLUS ACIDOPHILUS 1 EACH TAB (FP) PO SCH (09:31)
[2017-06-02] MEDS: amLODIPine BESYLATE 5 MG TABLET (FP) PO SCH (09:31)
--- NOTE | 2017-06-02 10:36 | PN ---
Physical Exam: SUBJECTIVE: Patient seen and examined, abdominal pain to the lower quadrants of abdominal pain OBJECTIVE: patient is a 57 y/o male with a past medical history of HTN, HLD, [place]- 2007, diverticulitis, and Perry's esophagus. Patient was admitted from the emergency department for sepsis and diverticulitis. Vital Signs Period Temp Pulse Resp BP Sys/Salter Pulse Ox Last 24 Hr 98.5 F-98.6 F 89-104 18-19 126-149/84-95 95-98 PHYSICAL EXAM GENERAL: The patient is awake, alert, and fully oriented, in no acute distress. HEAD: Normal with no signs of trauma. EYES: PERRL, extraocular movements intact, sclera anicteric, conjunctiva clear. No ptosis. ENT: Ears normal, nares patent, oropharynx clear without exudates, moist mucous membranes. NECK: Trachea midline, full range of motion, supple. LUNGS: Breath sounds equal, clear to auscultation bilaterally, no wheezes, no crackles, no accessory muscle use. HEART: Regular rate and rhythm, S1, S2 without murmur, rub or gallop. ABDOMEN: Soft, minimal left lower quadrant tenderness upon palpation, nondistended, normoactive bowel sounds, no guarding, no rebound, no hepatosplenomegaly, no masses. EXTREMITIES: 2+ pulses, warm, well-perfused, no edema. NEUROLOGICAL: Cranial nerves II through XII grossly intact. Normal speech, gait not observed. PSYCH: tearful. SKIN: Warm, dry, normal turgor, no rashes or lesions noted Laboratory Results - last 24 hr 05/31/17 06/01/17 06/02/17 06:00 13:10 07:30 WBC 10.3 RBC 4.33 Hgb 12.6 Hct 36.1 MCV 83.3 MCH 29.0 MCHC 34.8 RDW 13.0 Plt Count 333 D MPV 7.6 Neutrophils % 68.6 Lymphocytes % 19.6 D Monocytes % 9.0 Eosinophils % 2.1 Basophils % 0.7 INR 1.13 Sodium Potassium Chloride Carbon Dioxide Anion Gap BUN Creatinine Creat Clearance w eGFR Random Glucose Calcium Phosphorus Magnesium Total Bilirubin AST ALT Alkaline Phosphatase Total Protein Albumin Hepatitis C Antibody <0.1 06/02/17 07:30 WBC RBC Hgb Hct MCV MCH MCHC RDW Plt Count MPV Neutrophils % Lymphocytes % Monocytes % Eosinophils % Basophils % INR Sodium 134 L Potassium 4.1 Chloride 100 Carbon Dioxide 28 Anion Gap 6 L BUN 10 Creatinine 0.9 Creat Clearance w eGFR > 60 Random Glucose 97 Calcium 8.2 L Phosphorus 3.9 Magnesium 2.1 Total Bilirubin 1.0 D AST 47 H ALT 42 H Alkaline Phosphatase 107 H Total Protein 6.3 L Albumin 2.8 L Hepatitis C Antibody Active Medications Generic Name Dose Route Start Last Admin Trade Name Freq PRN Reason Stop Dose Admin Acetaminophen 650 mg 05/27/17 10:41 Tylenol - PO Q4H PRN FEVER OR PAIN Amlodipine Besylate 5 mg 05/28/17 10:00 06/02/17 09:31 Norvasc - PO 5 mg DAILY EMILIANO Administration Ceftriaxone Sodium 2 gm 06/01/17 10:00 06/02/17 09:31 Rocephin 2gm Ivpb (Pre-Docked) IVPB 2 gm DAILY EMILIANO Administration Protocol Docusate Sodium 100 mg 05/29/17 14:00 06/02/17 06:19 Colace - PO 100 mg TID EMILIANO Administration Ezetimibe 10 mg 05/28/17 10:00 06/02/17 09:31 Zetia - PO 10 mg DAILY EMILIANO Administration Enoxaparin Sodium 80 mg 06/01/17 22:00 06/02/17 09:31 Lovenox - SQ 80 mg BID EMILIANO Administration Hydromorphone HCl 2 mg 06/01/17 11:58 06/02/17 04:05 Dilaudid Injection - IVPB 2 mg Q6H PRN Administration PAIN Potassium Chloride/Sodium Chloride 1,000 mls @ 75 mls/hr 05/28/17 10:52 21:43 Ns+20 Meq Kcl - IV 75 mls/hr ASDIR EMILIANO Administration Metronidazole 100 mls @ 100 mls/hr 05/29/17 12:00 06/02/17 06:20 Flagyl 500mg Premixed Ivpb - IVPB 100 mls/hr Q6H EMILIANO Administration Lactobacillus Acidophilus 1 tab 05/28/17 10:00 06/02/17 09:31 Bacid - PO 1 tab DAILY EMILIANO Administration Lorazepam 1 mg 06/01/17 09:08 06/01/17 21:50 Ativan - PO 1 mg TID PRN Administration ANXIETY Magnesium Hydroxide 30 ml 05/29/17 10:32 05/29/17 11:27 Milk Of Magnesia - PO 30 ml PRN PRN Administration CONSTIPATION Ondansetron HCl 4 mg 05/26/17 16:17 06/02/17 04:24 Zofran Injection IVPB 4 mg Q6H PRN Administration NAUSEA Oxycodone/Acetaminophen 1 combo 05/28/17 10:32 05/29/17 13:36 Percocet 5/325 - PO 1 combo Q4H PRN Administration PAIN LEVEL 6-10 Potassium Phos/Sodium Phos 1 packet 05/28/17 14:00 06/02/17 07:21 Phos-Nak Packet - PO Not Given TID EMILIANO Promethazine HCl 12.5 mg 05/27/17 20:00 06/01/17 04:56 Phenergan Injection - IM 12.5 mg Q6H PRN Administration NAUSEA AND/OR VOMITING Ranitidine HCl 150 mg 06/01/17 22:00 06/02/17 09:31 Zantac - PO 150 mg BID EMILIANO Administration Rosuvastatin Calcium 10 mg 05/27/17 22:00 06/01/17 21:39 Crestor - PO 10 mg HS EMILIANO Administration Microbiology 05/31/17 09:50 Blood - Peripheral Venous Blood Culture - Preliminary NO GROWTH OBTAINED AFTER 48 HOURS, INCUBATION TO CONTINUE FOR 3 DAYS. 05/31/17 09:50 Blood - Peripheral Venous Blood Culture - Preliminary NO GROWTH OBTAINED AFTER 48 HOURS, INCUBATION TO CONTINUE FOR 3 DAYS. 05/26/17 11:02 Blood - Peripheral Venous Blood Culture - Final Clostridium Paraputrificum 05/27/17 09:50 Blood - Peripheral Venous Blood Culture - Final Clostridium Paraputrificum 05/26/17 11:15 Blood - Peripheral Venous Blood Culture - Final Clostridium Paraputrificum 05/27/17 09:55 Blood - Peripheral Venous Blood Culture - Final Clostridium Paraputrificum imaging CT of abdomen/pelvis with oral and IV contrast(May 26) findings consistent with acute diverticulitis involving the proximal and mid sigmoid colon with significant stranding of the surrounding mesenteric fat, minimal free fluid of pelvis. chest xray, minimal submental atelectasis of lung bases ct of abd/pelvis with contrast: interval development of serval small pockets of extraluminal air within the mid sigmoid mesentry centrally, increased pericolonic edema in association with known acute sigmoid diverticulitis, no pericolonic abscess, right hepatic lobe small vessel thrombis as per radiologist , Dr Matias ultrasound of abd: gallbladder sludge, no evidence of acute cholecytitis, mild fatty liver infiltration ASSESSMENT/PLAN: 1. Diverticulitis - reports some improvement in the abdominal pain - Continue Zosyn (05/26-05/28), Ceftriaxone (05/30- ), Flagyl (05/27- ) - Continue Percocet with hydromorphone for breakthrough pain - appreciate GI input 2. peripheral portal vein thrombosis - continue lovenox therapeutic dose - case discussed with Dr Juarez, pt's pcp,he was evaluated by Dr Juarez in for a full physical, as per Dr Juarez's records patient doesn't have a history of thrombosis . - appreciate hematology input 3. Sepsis - Clostridum paraputrificum in all cultures 05/26 and 05/27, anearobe continue flagyl - echo, LV, echo 60-65%, no obvious vegetation - continue flagyl and rocephin - afebrile leukocytosis resolved - ID consulted and following 4. HTN - BP at goal - Continue Amlodipine 5. HLD - Continue Zetia and Crestor 6. Anxiety - Continue PO Ativan 7. F/E/N - NS w/20mEq KCl@ 75ml/hr - Tolerating full liquid diet - replete prn 8. PPX - Lovenox 1mg/kg bid (thereputic dose) Dispo: Requires continued inpatient management of acute medical conditions. Visit type - Emergency Visit Emergency Visit: Yes ED Registration Date: 05/26/17 Care time: The patient presented to the Emergency Department on the above date and was hospitalized for further evaluation of their emergent condition. - New Patient This patient is new to me today: No - Critical Care Critical Care patient: No - Discharge Referral Referred to [facility] Med P.C.: No
[2017-06-02] MEDS: LORazepam 0.5 MG TABLET PO PRN ×2 (11:00→22:49)
[2017-06-02] MEDS: SODIUM CHLORIDE 0.9%/KCL 1,000 ML IV SCH (13:17)
--- NOTE | 2017-06-02 16:04 | PN ---
Progress Note (short form) - Note Progress Note: Patient seen and chart reviewed with consult dictated. Patient with acute diverticulitis (sigmoid) being treated with IV antibiotics (per ID). Has improving WBC, decreased abdominal pain and no fever/chills. Tolerating some PO but also c/o lower abdominal tenderness to palpation. +BMs -N/V. CT (repeat) still with evidence of inflammation. Patient jarrett this is his second episode of diverticulitis (1st episode several years ago) and is asking about surgery/resection. Ideally, patient will continue to improve on antibiotics (and can be switched to PO); with decreased abdominal tenderness - can then consider for elective sigmoid surgery/resection rather than 2 stage procedure (with temporary colostomy). Patient not currently requesting pain meds and appears anxious to get better and go home. Will follow clinically.
--- NOTE | 2017-06-02 18:00 | CONS ---
DATE OF CONSULTATION: DATE OF DICTATION: 06/02/2017 HISTORY OF PRESENT ILLNESS: I was asked to evaluate this 57-year-old gentleman with lower abdominal pain and diverticulitis. The patient has a history of hypertension, hyperlipidemia, coronary artery disease with an [place] in 2007 ? related to hypertension, Perry esophagus, and an episode of diverticulitis 5-6 years ago. At that time, he was hospitalized at [facility] and treated with antibiotics. He presents in the emergency room on 05/26 with abdominal pain and requesting pain medicine. The patient had a workup including blood work which showed elevated white count and a CAT scan consistent with sigmoid diverticulitis. The patient was admitted to the hospital and started on IV antibiotics including antibiotics as including Zosyn and Flagyl. He has been followed by both infectious disease and surgery during the hospitalization. A repeat CAT scan of the abdomen and pelvis 5 days after admission showed inflammation of the sigmoid colon with increased pericolic colonic edema. There was no discreet mass seen. The patient has had no recent fever. His white count has improved from a high of 14.9 down to 10.3. Highest hematocrit was 36.1. The patient is now tolerating p.o. liquids without any nausea, vomiting. He is having bowel movements somewhat frequently at the present time. PHYSICAL EXAMINATION: General: He is a well-developed, well-nourished gentleman. HEENT: Patient has pink conjunctivae. Lungs: Clear lungs. Cardiac: Regular rate and rhythm on cardiac exam. Abdomen: Soft abdomen. Normoactive bowel sounds. No localized tenderness in the suprapubic region bilaterally. There is no discrete mass felt. Patient with sigmoid diverticulitis. He is clinically improving with regard to fever, pain, and white count, although he still has tenderness in the suprapubic area inferior to the umbilicus. He is on IV antibiotics at the present time. He is questioning whether he needs surgery and has been questioned whether this should be done on the current admission or electively. I have suggested that clinically if he improves, then surgical option might be considered as an outpatient, however if his pain persists or he develops a fever or white count, or persistent CT evidence of diverticulitis, this may need to be done sooner. There is no indication for GI endoscopy at the present time and will follow clinically. Separately the patient has had slight elevation of his total bilirubin which is now returned to normal may have underlying syndrome. He also has slight elevation of the serum transaminases which could be related to the underlying effects or possibly a reaction to one of his medications. Will follow clinically as needed. HEIDI GARVIN M.D. [id number]
[2017-06-02] MEDS: ROSUVASTATIN CA 10 MG TABLET (FP) PO SCH (21:03)
[2017-06-03] MEDS: METRONIDAZOLE 500 MG PREMIXED 100 ML IVPB SCH ×5 (00:05→23:51)
[2017-06-03] MEDS: NAPH,MB-DB/K PH,MBDB POWDER PACKET PO SCH ×3 (06:56→21:22)
[2017-06-03] MEDS: DOCUSATE SODIUM 100 MG CAPSULE (FP) PO SCH ×3 (06:56→21:21)
[2017-06-03 08:16] LABS: EOSINOPHIL 2.6 % (0-4.5); MCH 28.6 pg (25.7-33.7); MCHC 33.4 g/dl (32.0-35.9); MEAN CELL VOLUME 85.6 fl (80-96); NEUTROPHILS 64.3 % (42.8-82.8); PLATELET COUNT 390 K/MM3 (134-434); RDW 12.9 % (11.9-15.9); WHITE BLOOD COUNT 10.4 K/mm3 (4.0-10.8)
[2017-06-03] MEDS: HYDROmorphone HCL CARPU-JECT 2 MG/1 ML DISP.SYRIN IVPB PRN ×3 (08:22→22:20)
--- NOTE | 2017-06-03 08:37 | PN ---
Physical Exam: SUBJECTIVE: Patient seen and examined, patient reports feeling better, tolerating soft diet. OBJECTIVE:patient is a 57 y/o male with a past medical history of HTN, HLD, [place]- 2007, diverticulitis, and Perry's esophagus. Patient was admitted from the emergency department for sepsis and diverticulitis. Vital Signs Period Temp Pulse Resp BP Sys/Salter Pulse Ox Last 24 Hr 98.2 F-98.7 F 86-95 18-20 128-138/81-87 96-100 GENERAL: The patient is awake, alert, and fully oriented, in no acute distress. HEAD: Normal with no signs of trauma. EYES: PERRL, extraocular movements intact, sclera anicteric, conjunctiva clear. No ptosis. ENT: Ears normal, nares patent, oropharynx clear without exudates, moist mucous membranes. NECK: Trachea midline, full range of motion, supple. LUNGS: Breath sounds equal, clear to auscultation bilaterally, no wheezes, no crackles, no accessory muscle use. HEART: Regular rate and rhythm, S1, S2 without murmur, rub or gallop. ABDOMEN: Soft, nontender, nondistended, normoactive bowel sounds, no guarding, no rebound, no hepatosplenomegaly, no masses. EXTREMITIES: 2+ pulses, warm, well-perfused, no edema. NEUROLOGICAL: Cranial nerves II through XII grossly intact. Normal speech, gait not observed. PSYCH: Normal mood, normal affect. SKIN: Warm, dry, normal turgor, no rashes or lesions noted Laboratory Results - last 24 hr 06/02/17 06/03/17 07:30 07:55 WBC 10.4 RBC 4.60 Hgb 13.1 Hct 39.4 MCV 85.6 MCH 28.6 MCHC 33.4 RDW 12.9 Plt Count 390 MPV 8.0 Neutrophils % 64.3 Lymphocytes % 20.3 Monocytes % 10.8 H Eosinophils % 2.6 Basophils % 2.0 Sodium 134 L Potassium 4.1 Chloride 100 Carbon Dioxide 28 Anion Gap 6 L BUN 10 Creatinine 0.9 Creat Clearance w eGFR > 60 Random Glucose 97 Calcium 8.2 L Phosphorus 3.9 Magnesium 2.1 Total Bilirubin 1.0 D AST 47 H ALT 42 H Alkaline Phosphatase 107 H Total Protein 6.3 L Albumin 2.8 L Active Medications Generic Name Dose Route Start Last Admin Trade Name Robbie PRN Reason Stop Dose Admin Acetaminophen 650 mg 05/27/17 10:41 Tylenol - PO Q4H PRN FEVER OR PAIN Amlodipine Besylate 5 mg 05/28/17 10:00 06/02/17 09:31 Norvasc - PO 5 mg DAILY EMILIANO Administration Ceftriaxone Sodium 2 gm 06/01/17 10:00 06/02/17 09:31 Rocephin 2gm Ivpb (Pre-Docked) IVPB 2 gm DAILY EMILIANO Administration Protocol Docusate Sodium 100 mg 05/29/17 14:00 06/03/17 06:56 Colace - PO 100 mg TID EMILIANO Administration Ezetimibe 10 mg 05/28/17 10:00 06/02/17 09:31 Zetia - PO 10 mg DAILY EMILIANO Administration Enoxaparin Sodium 80 mg 06/01/17 22:00 06/02/17 21:04 Lovenox - SQ 80 mg BID EMILIANO Administration Hydromorphone HCl 2 mg 06/01/17 11:58 06/03/17 08:22 Dilaudid Injection - IVPB 2 mg Q6H PRN Administration PAIN Potassium Chloride/Sodium Chloride 1,000 mls @ 75 mls/hr 05/28/17 10:52 13:17 Ns+20 Meq Kcl - IV 75 mls/hr ASDIR EMILIANO Administration Metronidazole 100 mls @ 100 mls/hr 05/29/17 12:00 06/03/17 06:56 Flagyl 500mg Premixed Ivpb - IVPB 100 mls/hr Q6H EMILIANO Administration Lactobacillus Acidophilus 1 tab 05/28/17 10:00 06/02/17 09:31 Bacid - PO 1 tab DAILY EMILIANO Administration Lorazepam 1 mg 06/01/17 09:08 06/02/17 22:49 Ativan - PO 1 mg TID PRN Administration ANXIETY Magnesium Hydroxide 30 ml 05/29/17 10:32 05/29/17 11:27 Milk Of Magnesia - PO 30 ml PRN PRN Administration CONSTIPATION Ondansetron HCl 4 mg 05/26/17 16:17 06/02/17 04:24 Zofran Injection IVPB 4 mg Q6H PRN Administration NAUSEA Oxycodone/Acetaminophen 1 combo 05/28/17 10:32 05/29/17 13:36 Percocet 5/325 - PO 1 combo Q4H PRN Administration PAIN LEVEL 6-10 Potassium Phos/Sodium Phos 1 packet 05/28/17 14:00 06/03/17 06:56 Phos-Nak Packet - PO 1 packet TID EMILIANO Administration Promethazine HCl 12.5 mg 05/27/17 20:00 06/01/17 04:56 Phenergan Injection - IM 12.5 mg Q6H PRN Administration NAUSEA AND/OR VOMITING Ranitidine HCl 150 mg 06/01/17 22:00 06/02/17 21:03 Zantac - PO 150 mg BID EMILIANO Administration Rosuvastatin Calcium 10 mg 05/27/17 22:00 06/02/17 21:03 Crestor - PO 10 mg HS EMILIANO Administration Microbiology 05/31/17 09:50 Blood - Peripheral Venous Blood Culture - Preliminary NO GROWTH OBTAINED AFTER 72 HOURS, INCUBATION TO CONTINUE FOR 2 DAYS. 05/31/17 09:50 Blood - Peripheral Venous Blood Culture - Preliminary NO GROWTH OBTAINED AFTER 72 HOURS, INCUBATION TO CONTINUE FOR 2 DAYS. 05/26/17 11:02 Blood - Peripheral Venous Blood Culture - Final Clostridium Paraputrificum 05/27/17 09:50 Blood - Peripheral Venous Blood Culture - Final Clostridium Paraputrificum 05/26/17 11:15 Blood - Peripheral Venous Blood Culture - Final Clostridium Paraputrificum 05/27/17 09:55 Blood - Peripheral Venous Blood Culture - Final Clostridium Paraputrificum imaging CT of abdomen/pelvis with oral and IV contrast(May 26) findings consistent with acute diverticulitis involving the proximal and mid sigmoid colon with significant stranding of the surrounding mesenteric fat, minimal free fluid of pelvis. chest xray, minimal submental atelectasis of lung bases ct of abd/pelvis with contrast: interval development of serval small pockets of extraluminal air within the mid sigmoid mesentry centrally, increased pericolonic edema in association with known acute sigmoid diverticulitis, no pericolonic abscess, right hepatic lobe small vessel thrombis as per radiologist , Dr Matias ultrasound of abd: gallbladder sludge, no evidence of acute cholecytitis, mild fatty liver infiltration ASSESSMENT/PLAN: 1. Diverticulitis - reports improvement of abdominal pain and following diet - Continue Zosyn (05/26-05/28), Ceftriaxone (05/30- ), Flagyl (05/27- ) - Continue Percocet with hydromorphone for breakthrough pain - GI and surgery consulted and following 2. peripheral portal vein thrombosis - continue lovenox therapeutic dose - case discussed with Dr Juarez, pt's pcp,he was evaluated by Dr Juarez in for a full physical, as per Dr Juarez's records patient doesn't have a history of thrombosis . - appreciate hematology input 3. Sepsis - Clostridum paraputrificum in all cultures 05/26 and 05/27, anearobe continue flagyl - echo, LV, echo 60-65%, no obvious vegetation - continue flagyl and rocephin - afebrile leukocytosis resolved - ID consulted and following 4. HTN - BP at goal - Continue Amlodipine 5. HLD - Continue Zetia and Crestor 6. Anxiety - Continue PO Ativan 7. F/E/N - advance to low sodium diet - replete prn 8. PPX - Lovenox 1mg/kg bid (thereputic dose) Dispo: Requires continued inpatient management of acute medical conditions. Visit type - Emergency Visit Emergency Visit: Yes ED Registration Date: 05/26/17 Care time: The patient presented to the Emergency Department on the above date and was hospitalized for further evaluation of their emergent condition. - New Patient This patient is new to me today: No - Critical Care Critical Care patient: No - Discharge Referral Referred to [facility] Med P.C.: No
[2017-06-03 08:46] LABS: ANION GAP 7 (8-16); CALCIUM 8.5 mg/dl (8.4-10.2); CO2 26 mmol/L (22-28); CREATININE 0.9 mg/dl (0.6-1.3); GLUCOSE,RANDOM 114 mg/dl (74-106); MAGNESIUM 2.1 mg/dL (1.8-2.4); PHOSPHOROUS 3.3 mg/dl (2.5-4.6)
--- NOTE | 2017-06-03 09:00 | PN ---
Progress Note, Physician History of Present Illness: Awake, alert Reports less abdominal pain No N/V + Loose BMs Afebrile WBC WNL - Current Medication List Current Medications: Active Medications Acetaminophen (Tylenol -) 650 mg PO Q4H PRN PRN Reason: FEVER OR PAIN Amlodipine Besylate (Norvasc -) 5 mg PO DAILY [facility] Last Admin: 06/02/17 09:31 Dose: 5 mg Ceftriaxone Sodium (Rocephin 2gm Ivpb (Pre-Docked)) 2 gm IVPB DAILY [facility] PRN Reason: Protocol Last Admin: 06/02/17 09:31 Dose: 2 gm Docusate Sodium (Colace -) 100 mg PO TID [facility] Last Admin: 06/03/17 06:56 Dose: 100 mg Ezetimibe (Zetia -) 10 mg PO DAILY [facility] Last Admin: 06/02/17 09:31 Dose: 10 mg Enoxaparin Sodium (Lovenox -) 80 mg SQ BID [facility] Last Admin: 06/02/17 21:04 Dose: 80 mg Hydromorphone HCl (Dilaudid Injection -) 2 mg IVPB Q6H PRN PRN Reason: PAIN Last Admin: 06/03/17 08:22 Dose: 2 mg Potassium Chloride/Sodium Chloride (Ns+20 Meq Kcl -) 1,000 mls @ 75 mls/hr IV ASDIR [facility] Last Admin: 06/02/17 13:17 Dose: 75 mls/hr Metronidazole (Flagyl 500mg Premixed Ivpb -) 100 mls @ 100 mls/hr IVPB Q6H [facility] Last Admin: 06/03/17 06:56 Dose: 100 mls/hr Lactobacillus Acidophilus (Bacid -) 1 tab PO DAILY [facility] Last Admin: 06/02/17 09:31 Dose: 1 tab Lorazepam (Ativan -) 1 mg PO TID PRN PRN Reason: ANXIETY Last Admin: 06/02/17 22:49 Dose: 1 mg Magnesium Hydroxide (Milk Of Magnesia -) 30 ml PO PRN PRN PRN Reason: CONSTIPATION Last Admin: 05/29/17 11:27 Dose: 30 ml Ondansetron HCl (Zofran Injection) 4 mg IVPB Q6H PRN PRN Reason: NAUSEA Last Admin: 06/02/17 04:24 Dose: 4 mg Oxycodone/Acetaminophen (Percocet 5/325 -) 1 combo PO Q4H PRN PRN Reason: PAIN LEVEL 6-10 Last Admin: 05/29/17 13:36 Dose: 1 combo Potassium Phos/Sodium Phos (Phos-Nak Packet -) 1 packet PO TID [facility] Last Admin: 06/03/17 06:56 Dose: 1 packet Promethazine HCl (Phenergan Injection -) 12.5 mg IM Q6H PRN PRN Reason: NAUSEA AND/OR VOMITING Last Admin: 06/01/17 04:56 Dose: 12.5 mg Ranitidine HCl (Zantac -) 150 mg PO BID [facility] Last Admin: 06/02/17 21:03 Dose: 150 mg Rosuvastatin Calcium (Crestor -) 10 mg PO HS [facility] Last Admin: 06/02/17 21:03 Dose: 10 mg - Objective Vital Signs: Vital Signs Temperature 98.6 F 06/03/17 05:58 Pulse Rate 86 06/03/17 05:58 Respiratory Rate 20 06/03/17 05:58 Blood Pressure 128/81 06/03/17 05:58 O2 Sat by Pulse Oximetry (%) 96 06/03/17 05:58 Constitutional: Yes: No Distress Eyes: Yes: Conjunctiva Clear Cardiovascular: Yes: Regular Rate and Rhythm, S1, S2 Respiratory: Yes: CTA Bilaterally Gastrointestinal: Yes: Normal Bowel Sounds, Soft. No: Tenderness Edema: No Labs: CBC, BMP 06/03/17 07:55 06/03/17 07:55 INR, PTT INR 1.13 (0.82-1.09) 06/01/17 13:10 Assessment/Plan Acute sigmoid diverticulitis improved Anaerobic bacteremia/ sepsis secondary to GI source Fever/ leukocytosis- improved Portal vein thrombosis Continue ceftriaxone/ flagyl Advance diet
--- NOTE | 2017-06-03 09:21 | PN ---
Progress Note (short form) - Note Progress Note: Attending Surgeon No c/o; tolerating diet; having BM's VSS AF abdo-soft; non tender WBC WNL IMP: resolving sigmaoid diverticulitis PLAN: Antibiotics per ID; advance diet; evaluation post d/c for elective sigmoid resection; suggest evaluation by Colorectal surgeon for possible laparoscopic sigmoid resection. Gio England MD FACS
[2017-06-03] MEDS: amLODIPine BESYLATE 5 MG TABLET (FP) PO SCH (10:08)
[2017-06-03] MEDS: ENOXAPARIN NA (PORCINE) 80 MG/0.8 ML DISP.SYRIN SQ SCH ×2 (10:08→21:26)
[2017-06-03] MEDS: LACTOBACILLUS ACIDOPHILUS 1 EACH TAB (FP) PO SCH (10:08)
[2017-06-03] MEDS: EZETIMIBE 10 MG TABLET (FP) PO SCH (10:08)
[2017-06-03] MEDS: RANITIDINE HCL 150 MG TABLET (FP) PO SCH ×2 (10:08→21:20)
[2017-06-03] MEDS: LORazepam 0.5 MG TABLET PO PRN ×2 (10:10→23:50)
[2017-06-03] MEDS: cefTRIAXone 2 GM/100 ML BAG (PRE-DOCKED) IVPB SCH (10:10)
[2017-06-03] MEDS: ROSUVASTATIN CA 10 MG TABLET (FP) PO SCH (21:21)
--- NOTE | 2017-06-03 21:59 | CONSULT ---
Consult Consult Specialty:: hematology Referred by:: sudha segura Reason for Consultation:: PV thrombosis - History of Present Illness Chief Complaint: adm w abd pain History of Present Illness: 57 yom w h/o diverticulosis polysubstance abuse adm w abd pain. Found to have diverticulitis and treated w abx. Severity of pain felt to be out of proportion to findings and repeat imaging obtained showing new small PV thrombosis. a/c initiated w lovenox. He denies h/o dvt/PE but notes having an IN. Has bro and sis? w h/o thromboses - History Source History Provided By: Patient, Medical Record - Past Medical History Cardio/Vascular: Yes: IN Gastrointestinal: Yes: Diverticulitis Psych: Yes: Addictions - Alcohol/Substance Use Hx Alcohol Use: No - Smoking History Smoking history: Never smoked Have you smoked in the past 12 months: No Aproximately how many cigarettes per day: 0 Home Medications - Allergies Allergies/Adverse Reactions: Allergies Allergy/AdvReac Type Severity Reaction Status Date / Time No Known Allergies Allergy Verified 05/26/17 09:27 - Home Medications Home Medications: Ambulatory Orders NK [No Known Home Medication] 05/26/17 Review of Systems - Review of Systems Gastrointestinal: reports: Abdominal Pain Physical Exam Vital Signs: Vital Signs Temperature 98.8 F 06/03/17 14:00 Pulse Rate 95 H 06/03/17 14:00 Respiratory Rate 18 06/03/17 14:00 Blood Pressure 125/68 06/03/17 14:00 O2 Sat by Pulse Oximetry (%) 99 06/03/17 20:03 Constitutional: Yes: Other (irritable, easily agit NAD) Neck: Yes: Supple Cardiovascular: Yes: Regular Rate and Rhythm Respiratory: Yes: CTA Bilaterally Gastrointestinal: Yes: Soft, Other (NT) Extremities: Yes: WNL Edema: No ...Motor Strength: WNL Psychiatric: Yes: Agitated Labs: CBC, BMP 06/03/17 07:55 06/03/17 07:55 Assessment/Plan acute abd pain bkd diverticulitis, now PVT? Contrib to pain? agree w use of a/c and would consider short course w outpt lab w/u ,imaging f /u. Pt notes he will not take blood thinner at home. obtain "baseline" PTT
[2017-06-04] MEDS: HYDROmorphone HCL CARPU-JECT 2 MG/1 ML DISP.SYRIN IVPB PRN ×2 (06:10→11:25)
[2017-06-04] MEDS: DOCUSATE SODIUM 100 MG CAPSULE (FP) PO SCH ×2 (06:21→06:35)
[2017-06-04] MEDS: METRONIDAZOLE 500 MG PREMIXED 100 ML IVPB SCH (06:22)
[2017-06-04] MEDS: NAPH,MB-DB/K PH,MBDB POWDER PACKET PO SCH ×2 (06:22→06:36)
[2017-06-04] MEDS: ONDANSETRON 4 MG/2 ML VIAL IVPB PRN (06:27)
[2017-06-04 06:41] VITALS: BP 134/87; PULSE 89; TEMP 97.6
[2017-06-04] MEDS: EZETIMIBE 10 MG TABLET (FP) PO SCH (10:09)
[2017-06-04] MEDS: amLODIPine BESYLATE 5 MG TABLET (FP) PO SCH (10:09)
[2017-06-04] MEDS: RANITIDINE HCL 150 MG TABLET (FP) PO SCH (10:09)
[2017-06-04] MEDS: cefTRIAXone 2 GM/100 ML BAG (PRE-DOCKED) IVPB SCH (10:09)
[2017-06-04] MEDS: ENOXAPARIN NA (PORCINE) 80 MG/0.8 ML DISP.SYRIN SQ SCH (10:10)
[2017-06-04] MEDS: LACTOBACILLUS ACIDOPHILUS 1 EACH TAB (FP) PO SCH (10:45)
--- NOTE | 2017-06-04 10:46 | PN ---
Progress Note, Physician History of Present Illness: Awake, alert Ambulatory No c/o abdominal pain Tolerating regular diet + BM No fever/ chills - Current Medication List Current Medications: Active Medications Acetaminophen (Tylenol -) 650 mg PO Q4H PRN PRN Reason: FEVER OR PAIN Amlodipine Besylate (Norvasc -) 5 mg PO DAILY [facility] Last Admin: 06/04/17 10:09 Dose: 5 mg Ceftriaxone Sodium (Rocephin 2gm Ivpb (Pre-Docked)) 2 gm IVPB DAILY [facility] PRN Reason: Protocol Last Admin: 06/04/17 10:09 Dose: 2 gm Docusate Sodium (Colace -) 100 mg PO TID [facility] Last Admin: 06/04/17 06:35 Dose: Not Given Ezetimibe (Zetia -) 10 mg PO DAILY [facility] Last Admin: 06/04/17 10:09 Dose: 10 mg Enoxaparin Sodium (Lovenox -) 80 mg SQ BID [facility] Last Admin: 06/04/17 10:10 Dose: 80 mg Hydromorphone HCl (Dilaudid Injection -) 2 mg IVPB Q6H PRN PRN Reason: PAIN Last Admin: 06/04/17 06:10 Dose: 2 mg Metronidazole (Flagyl 500mg Premixed Ivpb -) 100 mls @ 100 mls/hr IVPB Q6H [facility] Last Admin: 06/04/17 06:22 Dose: 100 mls/hr Lactobacillus Acidophilus (Bacid -) 1 tab PO DAILY [facility] Last Admin: 06/04/17 10:45 Dose: 1 tab Lorazepam (Ativan -) 1 mg PO TID PRN PRN Reason: ANXIETY Last Admin: 06/03/17 23:50 Dose: 1 mg Magnesium Hydroxide (Milk Of Magnesia -) 30 ml PO PRN PRN PRN Reason: CONSTIPATION Last Admin: 05/29/17 11:27 Dose: 30 ml Ondansetron HCl (Zofran Injection) 4 mg IVPB Q6H PRN PRN Reason: NAUSEA Last Admin: 06/04/17 06:27 Dose: 4 mg Oxycodone/Acetaminophen (Percocet 5/325 -) 1 combo PO Q4H PRN PRN Reason: PAIN LEVEL 6-10 Last Admin: 05/29/17 13:36 Dose: 1 combo Potassium Phos/Sodium Phos (Phos-Nak Packet -) 1 packet PO TID [facility] Last Admin: 06/04/17 06:36 Dose: Not Given Promethazine HCl (Phenergan Injection -) 12.5 mg IM Q6H PRN PRN Reason: NAUSEA AND/OR VOMITING Last Admin: 06/01/17 04:56 Dose: 12.5 mg Ranitidine HCl (Zantac -) 150 mg PO BID [facility] Last Admin: 06/04/17 10:09 Dose: 150 mg Rosuvastatin Calcium (Crestor -) 10 mg PO HS [facility] Last Admin: 06/03/17 21:21 Dose: 10 mg - Objective Vital Signs: Vital Signs Temperature 97.6 F 06/04/17 06:00 Pulse Rate 89 06/04/17 06:00 Respiratory Rate 19 06/04/17 06:00 Blood Pressure 134/87 06/04/17 06:00 O2 Sat by Pulse Oximetry (%) 98 06/04/17 08:30 Constitutional: Yes: No Distress Eyes: Yes: Conjunctiva Clear Cardiovascular: Yes: Regular Rate and Rhythm, S1, S2 Respiratory: Yes: CTA Bilaterally Gastrointestinal: Yes: Normal Bowel Sounds, Soft. No: Tenderness Edema: No Labs: CBC, BMP 06/03/17 07:55 06/03/17 07:55 INR, PTT INR 1.13 (0.82-1.09) 06/01/17 13:10 Assessment/Plan Acute sigmoid diverticulitis improved Anaerobic bacteremia/ sepsis secondary to GI source Fever/ leukocytosis- improved Portal vein thrombosis Substitute po antibiotic therapy with levaquin 500mg qd + flagyl 500mg tid for additional 7d Outpatient GI/ Surgical follow up Anticoagulation/ Hypercoagulable work up per hematology
--- NOTE | 2017-06-04 11:19 | DS ---
Physical Exam: SUBJECTIVE: Patient seen and examined, reports feeling better, tolerating soft bland diet. OBJECTIVE: patient is a 57 year old male with a past medical history significant for diverticulitis, last episode 5-6 years ago, who presented to the ED with abdominal pain and demanded dilaudid upon arrival as per ED note. Pt reports that he also has an undiagnosed problem for years where he starts to dry heave and only dilaudid relieves the symptoms. He states that no physicians have been able to determine the cause. He reports that he has been having abdominal pain off and on for the past week or so but the pain became unbearable yesterday with "retching". Pt reports abdominal cramping but denies diarrhea. He states that he has not been taking his medication as he has not been feeling well. ER course was notable for: (1) CT c/w sigmoid diverticulitis (2) WBC 20.8 Vital Signs Period Temp Pulse Resp BP Sys/Salter Pulse Ox Last 24 Hr 97.6 F-99.0 F 89-96 18-19 125-163/68-89 96-99 PHYSICAL EXAM GENERAL: The patient is awake, alert, and fully oriented, in no acute distress. HEAD: Normal with no signs of trauma. EYES: PERRL, extraocular movements intact, sclera anicteric, conjunctiva clear. No ptosis. ENT: Ears normal, nares patent, oropharynx clear without exudates, moist mucous membranes. NECK: Trachea midline, full range of motion, supple. LUNGS: Breath sounds equal, clear to auscultation bilaterally, no wheezes, no crackles, no accessory muscle use. HEART: Regular rate and rhythm, S1, S2 without murmur, rub or gallop. ABDOMEN: Soft, nontender, nondistended, normoactive bowel sounds, no guarding, no rebound, no hepatosplenomegaly, no masses. EXTREMITIES: 2+ pulses, warm, well-perfused, no edema. NEUROLOGICAL: Cranial nerves II through XII grossly intact. Normal speech, gait not observed. PSYCH: Normal mood, normal affect. SKIN: Warm, dry, normal turgor, no rashes or lesions noted LABS CBC WBC 10.4 K/mm3 (4.0-10.8) 06/03/17 07:55 RBC 4.60 M/mm3 (4.00-5.60) 06/03/17 07:55 Hgb 13.1 GM/dl (11.7-16.9) 06/03/17 07:55 Hct 39.4 % (35.4-49) 06/03/17 07:55 MCV 85.6 fl (80-96) 06/03/17 07:55 MCH 28.6 pg (25.7-33.7) 06/03/17 07:55 MCHC 33.4 g/dl (32.0-35.9) 06/03/17 07:55 RDW 12.9 % (11.9-15.9) 06/03/17 07:55 Plt Count 390 K/MM3 (134-434) 06/03/17 07:55 MPV 8.0 fl (7.5-11.1) 06/03/17 07:55 Neutrophils % 64.3 % (42.8-82.8) 06/03/17 07:55 Neutrophils % (Manual) 79 % (42.8-82.8) 05/30/17 06:00 Band Neuts % (Manual) 4 % (0-10) D 05/30/17 06:00 Lymphocytes % 20.3 % (8-40) 06/03/17 07:55 Lymphocytes % (Manual) 10 % (8-40) D 05/30/17 06:00 Monocytes % 10.8 % (3.8-10.2) H 06/03/17 07:55 Monocytes % (Manual) 6 % (3.8-10.2) 05/30/17 06:00 Eosinophils % 2.6 % (0-4.5) 06/03/17 07:55 Eosinophils % (Manual) 1 % (0-4.5) 05/30/17 06:00 Basophils % 2.0 % (0-2.0) 06/03/17 07:55 Platelet Estimate Adequate (NORMAL) 05/30/17 06:00 CMP Sodium 132 mmol/L (136-145) L 06/03/17 07:55 Potassium 4.1 mmol/L (3.5-5.1) 06/03/17 07:55 Chloride 99 mmol/L (98-107) 06/03/17 07:55 Carbon Dioxide 26 mmol/L (22-28) 06/03/17 07:55 Anion Gap 7 (8-16) L 06/03/17 07:55 BUN 11 mg/dl (7-18) 06/03/17 07:55 Creatinine 0.9 mg/dl (0.6-1.3) 06/03/17 07:55 Creat Clearance w eGFR > 60 (>60) 06/02/17 07:30 Random Glucose 114 mg/dl (74-106) H 06/03/17 07:55 Lactic Acid 1.2 mmol/L (0.4-2.0) 05/27/17 09:55 Calcium 8.5 mg/dl (8.4-10.2) 06/03/17 07:55 Phosphorus 3.3 mg/dl (2.5-4.6) 06/03/17 07:55 Magnesium 2.1 mg/dL (1.8-2.4) 06/03/17 07:55 Total Bilirubin 1.0 mg/dl (0.2-1.0) D 06/02/17 07:30 Direct Bilirubin 0.8 mg/dL (0.0-0.2) H 05/31/17 06:00 AST 47 U/L (10-42) H 06/02/17 07:30 ALT 42 U/L (10-40) H 06/02/17 07:30 Alkaline Phosphatase 107 U/L (32-92) H 06/02/17 07:30 C-Reactive Protein 8.3 MG/DL (0.00-0.3) H D 06/01/17 07:00 Total Protein 6.3 g/dl (6.4-8.3) L 06/02/17 07:30 Albumin 2.8 g/dl (3.5-5.0) L 06/02/17 07:30 Laboratory Tests 06/01/17 13:10 INR 1.13 Microbiology 05/31/17 09:50 Blood - Peripheral Venous Blood Culture - Final NO GROWTH AFTER 5 DAYS INCUBATION 05/31/17 09:50 Blood - Peripheral Venous Blood Culture - Final NO GROWTH AFTER 5 DAYS INCUBATION 05/26/17 11:02 Blood - Peripheral Venous Blood Culture - Final Clostridium Paraputrificum 05/27/17 09:50 Blood - Peripheral Venous Blood Culture - Final Clostridium Paraputrificum 05/26/17 11:15 Blood - Peripheral Venous Blood Culture - Final Clostridium Paraputrificum 05/27/17 09:55 Blood - Peripheral Venous Blood Culture - Final Clostridium Paraputrificum imaging CT of abdomen/pelvis with oral and IV contrast(May 26) findings consistent with acute diverticulitis involving the proximal and mid sigmoid colon with significant stranding of the surrounding mesenteric fat, minimal free fluid of pelvis. chest xray, minimal submental atelectasis of lung bases ct of abd/pelvis with contrast: interval development of serval small pockets of extraluminal air within the mid sigmoid mesentry centrally, increased pericolonic edema in association with known acute sigmoid diverticulitis, no pericolonic abscess, right hepatic lobe small vessel thrombis as per radiologist , Dr Matias ultrasound of abd: gallbladder sludge, no evidence of acute cholecytitis, mild fatty liver infiltration HOSPITAL COURSE: * Diverticulitis. reports improvement of abdominal pain and following diet treated with Continue Zosyn (05/26-05/28), Ceftriaxone (05/30-06/04/17 ), Flagyl (05/27 - 06/04/17). 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 * Sepsis resolved was secondary to Clostridum paraputrificum in all cultures and 05/27, repeat blood cultures was negative, anearobe continue flagyl, echo, LV, echo 60-65%, no obvious vegetation, pt is afebrile no leukocytosis is noted. ID Dr Meyer was consulted and followed. * patient has a pmh of HTN, BP at goal, Amlodipine was continued. * pmh of HLD, Zetia and Crestor was continued. * pmh of anxiety, Ativan was started. Date of Admission:05/26/17 Date of Discharge: 06/04/17 Minutes to complete discharge: 45 Discharge Summary Reason For Visit: DIVERTICULTITS Current Active Problems Diverticulitis (Acute) Condition: Improved - Instructions Diet, Activity, Other Instructions: continue bland diet continue levaquin and flagyl for the next 7 days please follow up with GI within 1 week please follow up with the personnel security specialist within 4 week please follow up with with the surgeon within 2 weeks Referrals: Gio England MD [Staff Physician] - 2 Weeks Rakesh Tim MD [Staff Physician] - 1 Week Radames Valdez MD [Staff Physician] - 1 Month Disposition: HOME - Home Medications Comprehensive Discharge Medication List: Ambulatory Orders NK [No Known Home Medication] 05/26/17 This patient is new to me today: No Emergency Visit: Yes ED Registration Date: 05/26/17 Care time: The patient presented to the Emergency Department on the above date and was hospitalized for further evaluation of their emergent condition. Critical Care patient: No - Discharge Referral Referred to [facility] No
== END 2017-06-04 12:39 | disposition home or self-care (01) | DRG 871 ==
LOC: FER 09:22 → FM/S 15:34
PROVIDERS: ADMIT Internal Medicine; ATTEND Nurse Practitioner Family
DX: A41.4 Sepsis due to anaerobes (principal); I81 Portal vein thrombosis; K57.32 Diverticulitis of large intestine without perforation or abscess without bleeding; F11.20 Opioid dependence, uncomplicated; I10 Essential (primary) hypertension; E78.5 Hyperlipidemia, unspecified; I25.2 Old myocardial infarction; K22.70 Barrett's esophagus without dysplasia; E87.6 Hypokalemia; F41.8 Other specified anxiety disorders; E80.6 Other disorders of bilirubin metabolism; D72.828 Other elevated white blood cell count
CPT/HCPCS: 36415; 71010-TC; 74177-TC; 76705-TC; 80048; 80053; 81003; 81015; 82248; 83605; 83735; 84100; 85025; 85610; 86140; 86803; 87040; 87076; 87389; 93005; 93306-TC; 97116-GP; 97161-GP; 99283-25

== ENCOUNTER 2017-06-06 04:06 | Emergency (ER) | payer OTHER ==
[2017-06-06 04:15] VITALS: BP 146/88; PULSE 106; TEMP 98.2; BMI 30.7
[2017-06-06] MEDS ORDERED: chlordiazePOXIDE HCL 25 MG CAPSULE PO ONE ×2 (04:35→04:52)
--- NOTE | 2017-06-06 04:47 | PDOC ---
History of Present Illness - General Chief Complaint: Shortness of Breath Stated Complaint: SOB Past History - Past Medical History Allergies/Adverse Reactions: Allergies Allergy/AdvReac Type Severity Reaction Status Date / Time No Known Allergies Allergy Verified 05/26/17 09:27 Home Medications: Ambulatory Orders Acetaminophen [Tylenol .Regular Strength -] 650 mg PO Q4H PRN #0 tablet Amlodipine Besylate [Norvasc -] 5 mg PO DAILY tablet 06/04/17 Aspirin [ASA -] 81 mg PO DAILY #30 tab.chew 06/04/17 Docusate Sodium [Colace -] 100 mg PO TID cap 06/04/17 Ezetimibe [Zetia -] 10 mg PO DAILY tablet 06/04/17 Lactobacillus Acidophilus [Bacid -] 1 tab PO DAILY tab 06/04/17 Levofloxacin [Levaquin -] 500 mg PO DAILY #7 tablet 06/04/17 Metronidazole [Flagyl -] 500 mg PO TID #21 tablet 06/04/17 Oxycodone HCl/Acetaminophen [Percocet 5-325 mg Tablet] 1 combo PO Q6H PRN #20 tablet MDD 4 06/04/17 Ranitidine [Zantac -] 150 mg PO BID tablet 06/04/17 Rosuvastatin [Crestor -] 10 mg PO HS tablet 06/04/17 GI Disorders: Yes (DIVERTICULITIS) - Psycho/Social/Smoking Cessation Hx Anxiety: No Suicidal Ideation: No Smoking History: Never smoked Have you smoked in the past 12 months: No Number of Cigarettes Smoked Daily: 0 Hx Alcohol Use: No Drug/Substance Use Hx: No Substance Use Type: None, Marijuana Hx Substance Use Treatment: No *Physical Exam - Vital Signs Last Vital Signs Temp Pulse Resp BP Pulse Ox 98.2 F 106 H 20 146/88 100 06/06/17 04:11 06/06/17 04:11 06/06/17 04:11 06/06/17 04:11 06/06/17 04:11 ED Treatment Course - RADIOLOGY Radiology Studies Ordered: Category Date Time Status CHEST PA & LAT [RAD] Stat Radiology 06/06/17 04:13 Ordered CHEST X-RAY PORTABLE* [RAD] Stat Radiology 06/06/17 04:15 Taken *DC/Admit/Observation/Transfer Diagnosis at time of Disposition: Narcotic dependence - Discharge Dispostion Disposition: HOME Condition at time of disposition: Stable Admit: No - Patient Instructions Printed Discharge Instructions: DI for Opioid Addiction Additional Instructions: Follow at [facility];7AM intake team can speak to your HMO
[2017-06-06] MEDS ORDERED: chlordiazePOXIDE HCL 25 MG CAPSULE ONE (04:50)
--- NOTE | 2017-06-08 10:29 | EKG ---
Test Reason : Blood Pressure : / mmHG Vent. Rate : 100 BPM Atrial Rate : 100 BPM P-R Int : 138 ms QRS Dur : 088 ms QT Int : 380 ms P-R-T Axes : 045 050 041 degrees QTc Int : 490 ms NORMAL SINUS RHYTHM POSSIBLE INFERIOR INFARCT (CITED ON OR BEFORE 06-JUN-2017) WHEN COMPARED WITH ECG OF 26-MAY-2017 15:41, NO SIGNIFICANT CHANGE WAS FOUND Confirmed by MD VALDOVINOS MARJORY ([id number]) on 06/08/2017 10:29:30 AM Referred By: MD SUTTON Confirmed By:IGNACIO VALDOVINOS MD
== END 2017-06-06 04:58 | disposition home or self-care (01) ==
LOC: FER 04:06
DX: F11.20 Opioid dependence, uncomplicated (principal)
CPT/HCPCS: 71010-TC; 93005; 99281-25